=== PATIENT | male | born 1970 | race Caucasian/White ===

== ENCOUNTER 2019-03-04 18:02 | Inpatient (IN) ==
[2019-03-04 19:06] LABS: HEMATOCRIT 33.8 % (42.0-52.0); HEMOGLOBIN 10.5 g/dL (14.0-18.0); LYMPH% 9.1 % (20.5-51.1); MCH 28.8 PG (27-31); MCHC 31.1 g/dL (33-37); MCV 92.9 FL (81-99); MPV 8.9 FL (7.4-10.4); NEUT% 76.5 % (42.2-75.2); PLT 206 X1000 (130-400); RBC 3.64 XMIL (4.7-6.1); RDW 13.2 % (11.5-14.5); WBC 15.62 X1000 (4.8-10.8)
[2019-03-04 19:07] LABS: BASO# 0.02 X1000 (0.0-0.2); BASO% 0.1 % (0.0-0.8); EOS# 0.34 X1000 (0.0-0.7); EOS% 2.2 % (0.0-10.0); IMM GRAN# 0.05 X1000 (0.0-0.04); IMM GRAN% 0.3 % (0.0-0.5); LYMPH# 1.42 X1000 (1.2-3.4); MONO# 1.85 X1000 (0.11-0.59); MONO% 11.8 % (1.7-9.3); NEUT# 11.94 X1000 (1.4-6.5)
[2019-03-04 19:18] LABS: INR 1.13; PROTIME 15.4 Seconds (11.0-16.0)
[2019-03-04 19:19] LABS: PTT 28.9 Seconds (22.3-41.8)
[2019-03-04 19:30] LABS: AGAP 15; ALB/GLOB RATIO 1.3; ALBUMIN 3.5 g/dL (3.5-5.0); ALKALINE PHOSPHATASE 238 U/L (32-122); BUN 28 mg/dL (8-22); CALCIUM 8.3 mg/dL (8.8-10.2); CHLORIDE 107 mmol/L (98-107); CK PROFILE 70 U/L (24-204); COSMO 282; CREATININE 2.9 mg/dL (0.7-1.2); ESTIMATED GFR 23; GLUCOSE 114 mg/dL (70-104); GOT 27 U/L (10-34); GPT 55 U/L (10-44); POTASSIUM 3.7 mmol/L (3.5-5.1); SODIUM 138 mmol/L (136-145); TCO2 16 mmol/L (25-35); TOTAL BILIRUBIN < 0.15 mg/dL (0.20-1.00); TOTAL PROTEIN 6.3 g/dL (6.3-8.3)
--- NOTE | 2019-03-04 19:46 | Diag Imaging Result Doc PS360 ---
EXAM: CHEST-1 VIEW INDICATION: sepsis prot. TECHNIQUE: One view COMPARISON: 06/28/2018 FINDINGS: There is a stable left chest port. The lungs are grossly clear. There is no discrete pleural fluid collection or pneumothorax. The cardiomediastinal silhouette and central vasculature are grossly unremarkable. IMPRESSION: No evidence of acute pathology by plain radiograph. Electronically signed by Yoni Lazaro 03/04/2019 7:44 PM
[2019-03-04] MEDS ORDERED: ZOFRAN IV ONE (20:27)
[2019-03-04] MEDS ORDERED: DILAUDID IV ONE (20:27)
--- NOTE | 2019-03-04 20:55 | Diag Imaging Result Doc PS360 ---
EXAM: CT ABDOMEN/PELVIS W/O CONTRAST INDICATION: abdo pain TECHNIQUE: This exam was performed using automated exposure control, adjustment of mA or kV according to patient size, and/or use of iterative reconstruction technique. COMPARISON: 06/16/2018 FINDINGS: There is mild subsegmental atelectasis at the lung bases. There is a tiny cyst at the inferior right hepatic lobe, stable. The liver is unremarkable, otherwise. The gallbladder, spleen, pancreas, and adrenal glands are unremarkable. There is stable marked chronic pelvocaliectasis bilaterally, more prominent on the left. There is a stable nonobstructing intrarenal stone at the lower pole of the left kidney. There is marked renal cortical thinning on the left and to a much lesser degree on the right, stable. There is a calcification that is closely associated with the mid to distal left ureter. However, it is stable since 2018. No acute obstructing stone is appreciated. The urinary bladder is only slightly distended. There are multiple metallic clips in the pelvis that are stable. There is a colostomy on the left. There are multiple fluid-filled loops of bowel in the pelvis with only mild distention. They are nonspecific. It is very similar to the previous study. Consider ileus versus low-grade partial obstruction. There is wall thickening involving the ascending colon on the right. Colitis cannot be excluded. There is no evidence of free abdominal gas and no significant free fluid. There has been a prior left hip arthroplasty. There is extensive bony heterogeneity involving the pelvis, sacrum, and lower lumbar spine that is stable and probably related to prior radiotherapy. IMPRESSION: 1.Several fluid-filled loops of small bowel with mild distention. They are nonspecific. Ileus versus low-grade partial obstruction should be considered. 2.Wall thickening involving a loop of the ascending colon. Consider colitis. 3.Other incidental/nonacute findings detailed above that are stable as compared to the previous study. Electronically signed by Yoni Lazaro 03/04/2019 8:53 PM
--- NOTE | 2019-03-04 21:53 | PROVIDER DOCUMENTATION ---
This chart was entered by Sarai Ricks Scribe, acting as scribe for Alexandr Reid MD. HPI-Abdominal Pain/GI Problem - General Chief Complaint: SEPSIS ALERT - D Stated Complaint: ABD PAIN Time Seen by Provider: 03/04/19 19:06 Source: patient Allergies/Adverse Reactions: Patient Allergies Allergy/AdvReac Type Severity Reaction Status Date / Time No Known Allergies Allergy Verified 06/29/18 14:42 Home Medications: Home Medication List Medication Instructions Recorded Confirmed Last Taken Type Carbamazepine 200 mg PO BID 04/18/18 06/30/18 06/29/18 21:15 History Oxybutynin [Ditropan] 5 mg PO TID 04/18/18 06/30/18 06/29/18 21:15 History Paroxetine HCl 20 mg PO DAILY 04/18/18 06/30/18 06/29/18 10:30 History Pregabalin [Lyrica] 75 mg PO BID 04/18/18 06/30/18 06/29/18 09:15 History - History of Present Illness-ABD Nature of Presenting Problems: pt is a 48 yr old male presenting with RLQ pain onset this AM, pt reports pain upon waking this morning. pt reports long hx of multiple abdominal surgeries, current ostomy in place. pt reports multiple bowel obstructions due to scar tissue but states this does not feel; the same. pt denies any other pain or complaint Abdominal Pain Onset Location: reports: RLQ Pain Radiation: reports: no radiation Quality of Pain: reports: cramping, sharp Severity in ED: reports: severe Onset/Duration: reports: this morning Timing: reports: still present Activities at Onset: reports: sleep Exposure to sick contacts?: No Modifying Factors: improves with: breathing (worsens pain) Associated Symptoms: reports: fever/chills. denies: nausea, vomiting Last BM: this evening Dark Stools Present?: reports: none noticed Rectal Bleeding: reports: none Rectal Pain: reports: none Emesis Description: reports: none Bruising or Bleeding Gums?: No Similar Symptoms Previously?: No Recently seen or treated by another doctor?: Yes Review of Systems - Adult - REVIEW OF SYSTEMS - ADULT Constitutional: reports: fever Eyes: reports: no symptoms reported Ears, Nose, Mouth & Throat: reports: no symptoms reported Cardiovascular: denies: chest pain, palpitations, syncope Respiratory: denies: dyspnea on exertion, shortness of breath Gastrointestinal: reports: abdominal pain. denies: diarrhea, nausea, poor appetite, vomiting Genitourinary: reports: no symptoms reported Musculoskeletal: denies: back pain, neck pain Integumentary: reports: no symptoms reported Neurological: denies: dizziness/vertigo, headache/migraines, syncope Psychiatric: reports: no symptoms reported Endocrine: reports: no symptoms reported Hematologic/Lymphatic: reports: no symptoms reported Allergic/Immunologic: reports: no symptoms reported All Other Systems: Reviewed and Negative Past History - Adult - PAST MEDICAL HISTORY-ADULT Review of Records: reports: Old Records Reviewed, Nursing Assessment Review, Medications Reviewed, Social history reviewed & non-contributory. Major Childhood Illnesses: reports: denies history Cardiovascular: reports: denies history Respiratory: reports: denies history Gastrointestinal: reports: denies history Obstetrical/Gynecological: reports: denies history Genitourinary: reports: denies history Musculoskeletal: reports: denies history Neurological: reports: denies history Endocrine/Immune: reports: denies history Other Conditions: reports: denies history - IMMUNIZATION STATUS Childhood Immunizations: See Nurse Assessment Flu Vaccine: See Nurse Assessment - FAMILY HISTORY Family History: reviewed, not pertinent - SOCIAL HISTORY Living Situation: family Physical Exam-General - PHYSICAL EXAM-ADULT Initial Vital Signs Reviewed: Yes - CONSTITUTIONAL General Appearance: appears well, alert, no apparent distress - EYES Eyes: PERRL/EOMI - HEAD, EARS, NOSE, MOUTH & THROAT HENMT: normocephalic/atraumatic, moist mucous membranes, normal ENT inspection - NECK Neck: non-tender, full range of motion, supple, normal inspection - RESPIRATORY Respiratory: chest non-tender, lungs clear, normal breath sounds, no respiratory distress, no accessory muscle use - CARDIOVASCULAR Cardiovascular: normal peripheral pulses, no edema, tachycardia - GASTROINTESTINAL (ABDOMEN) Abdominal Exam: tenderness (RLQ tenderness), hernia - LYMPHATIC Lymphatic: no adenopathy - MUSCULOSKELETAL Back Exam: normal inspection Extremity: normal range of motion, non-tender, normal inspection - SKIN Integumentary: normal color, normal turgor, warm/dry - NEUROLOGIC Neurologic: grossly normal - PSYCHIATRIC Psych/Mental Status: normal mood/affect Progress - PLAN OF CARE/RESULTS Progress/Plan/Lab Results: Vital Signs - 8 hr 03/04/19 18:37 Temperature 101.7 F H Pulse Rate 103 H Respiratory Rate 22 Blood Pressure 111/70 O2 Sat by Pulse Oximetry 97 Laboratory Results - last 24 hr 03/04/19 03/04/19 03/04/19 18:50 18:50 18:50 WBC 15.62 H RBC 3.64 L Hgb 10.5 L Hct 33.8 L MCV 92.9 MCH 28.8 MCHC 31.1 L RDW Std Deviation 13.2 Plt Count 206 MPV 8.9 Immature Gran % (Auto) 0.3 Neut % (Auto) 76.5 H Lymph % (Auto) 9.1 L [place] % (Auto) 11.8 H Eos % (Auto) 2.2 Baso % (Auto) 0.1 Immature Gran # (Auto) 0.05 H Neut # (Auto) 11.94 H Lymph # (Auto) 1.42 [place] # (Auto) 1.85 H Eos # (Auto) 0.34 Baso # (Auto) 0.02 PT 15.4 INR 1.13 PTT (Actin FS) 28.9 Plasma Lactate 1.7 Orders Category Date Time Status Cardiac Monitoring DIRECTED Care 03/04/19 18:49 Active IV Insertion ORDERED Care 03/04/19 18:49 Active Notify MD of + Sepsis Screen NOW Care 03/04/19 18:49 Active Notify Physician As Ordered Care 03/04/19 18:49 Active CHEST-1 VIEW [RAD] Stat Exams 03/04/19 18:49 Taken BLOOD CULTURE [BLDCUL] Stat Lab 03/04/19 19:14 Results CBC WITH DIFF [HEME] Stat Lab 03/04/19 18:50 Completed CK PROFILE [SP CHEM] Stat Lab 03/04/19 18:50 Received COMPREHENSIVE METABOLIC PANEL [CHEM] Stat Lab 03/04/19 18:50 Received LACTATE, PLASMA [CHEM] Lab 03/04/19 22:00 Uncollected LACTATE, PLASMA [CHEM] Lab 03/05/19 01:00 Uncollected LACTATE, PLASMA [CHEM] Q3H Lab 03/04/19 18:50 Completed PROTIME WITH INR [COAG] Stat Lab 03/04/19 18:50 Completed PTT [COAG] Stat Lab 03/04/19 18:50 Completed TROPONIN T Stat Lab 03/04/19 18:50 Received URINALYSIS W/POSS RFLX CULT [URINALYSIS] Stat Lab 03/04/19 18:49 Uncollected Oxygen Device Stat Oth 03/04/19 18:49 Active Result Diagrams: 03/04/19 18:50 03/04/19 18:50 - XRAY 1 XRAY Study: Chest Impression: Normal (Signed EXAM: CHEST-1 VIEW INDICATION: sepsis prot. TECHNIQUE: One view COMPARISON: 06/28/2018 FINDINGS: There is a stable left chest port. The lungs are grossly clear. There is no discrete pleural fluid collection or pneumothorax. The cardiomediastinal silhouette and central vasculature are grossly unremarkable. IMPRESSION: No evidence of acute pathology by plain radiograph. Electronically signed by Yoni Lazaro 03/04/2019 7:44 PM 03/04/191943 Interpreting Physician: Yoni Lazaro MD Dictated Date/Time: 03/04/191942 cc: Speedy Canela MD; None,PCP) Comparison with other Films: no changes (06/28/18) - CT/MRI 1 CT Study: Abdomen, Pelvis Impression: Abnormal (Signed EXAM: CT ABDOMEN/PELVIS W/O CONTRAST INDICATION: abdo pain TECHNIQUE: This exam was performed using automated exposure control, adjustment of mA or kV according to patient size, and/or use of iterative reconstruction technique. COMPARISON: 06/16/2018 FINDINGS: There is mild subsegmental atelectasis at the lung bases. There is a tiny cyst at the inferior right hepatic lobe, stable. The liver is unremarkable, otherwise. The gallbladder, spleen, pancreas, and adrenal glands are unremarkable. There is stable marked chronic pelvocaliectasis bilaterally, more prominent on the left. There is a stable nonobstructing intrarenal stone at the lower pole of the left kidney. There is marked renal cortical thinning on the left and to a much lesser degree on the right, stable. There is a calcification that is closely associated with the mid to distal left ureter. However, it is stable since 2018. No acute obstructing stone is appreciated. The urinary bladder is only slightly distended. There are multiple metallic clips in the pelvis that are stable. There is a colostomy on the left. There are multiple fluid-filled loops of bowel in the pelvis with only mild distention. They are nonspecific. It is very similar to the previous study. Consider ileus versus low-grade partial obstruction. There is wall thickening involving the ascending colon on the right. Colitis cannot be excluded. There is no evidence of free abdominal gas and no significant free fluid. There has been a prior left hip arthroplasty. There is extensive bony heterogeneity involving the pelvis, sacrum, and lower lumbar spine that is stable and probably related to prior radiotherapy. IMPRESSION: 1.Several fluid-filled loops of small bowel with mild distention. They are nonspecific. Ileus versus low-grade partial obstruction should be considered. 2.Wall thickening involving a loop of the ascending colon. Consider colitis. 3.Other incidental/nonacute findings detailed above that are stable as compared to the previous study. Electronically signed by Yoni Lazaro 03/04/2019 8:53 PM 03/04/192052 Interpreting Physician: Yoni Lazaro MD Dictated Date/Time: 03/04/192038 cc: Alexandr Reid MD; None,PCP) Comparison with other Films: changes noted (06/16/18) - CONSULTS/PCP/HOSPITALIST Notification #1 *Consult/PCP/Hospitalist*: Dr Betancourt Time Discussed: 21:52 Consult Disposition: Will see in ED, Admit Departure - Departure Date of Disposition Decision: 03/04/19 Time of Disposition Decision: 21:53 DIAGNOSIS: Abdominal pain, Renal insufficiency, Anemia Disposition: ADMITTED INPATIENT 09 Certified Medical Emergency: Emergent Condition: Fair Referrals and Follow-Ups: None,PCP [Primary Care Provider] - - Critical Care Note This patient required my direct & personal management of CC.: No Attestation - Physician/ ALIYA Attestation Patient care was provided by Advanced Practice Provider:: No The physician spent face to face time with patient:: Yes Advanced Practice Provider documentation review:: Supervising physician onsite and consulted in the evaluation and care of this patient. The physician did have a face to face encounter with the patient. This chart was documented by the indicated scribe, (Sarai Ricks Scribe) and accurately reflects the services I performed and decisions made by me, Alexandr Reid MD, as attested by the provider's signature.
[2019-03-04 23:27] LABS: URINE SOURCE CLEAN CATCH
[2019-03-04 23:30] LABS: UR EPITHELIAL CELLS <10 /HPF (<10); URINE BACTERIA NEGATIVE /HPF; URINE WBC TNTC /HPF (<10)
[2019-03-04 23:31] LABS: BILIRUBIN URINE NEGATIVE (NEGATIVE); BLOOD URINE MODERATE (NEGATIVE); COLOR YELLOW; GLUCOSE URINE NEGATIVE (NEGATIVE); KETONE URINE NEGATIVE (NEGATIVE); LEUKOCYTES URINE LARGE (NEGATIVE); NITRITE URINE NEGATIVE (NEGATIVE); PH URINE 6.5; PROTEIN URINE 50 mg/dL (NEGATIVE); TURBIDITY URINE CLEAR (CLEAR); UROBILINOGEN URINE NORMAL (NORMAL)
[2019-03-05] MEDS ORDERED: DILAUDID IV ONE (00:21)
[2019-03-05] MEDS ORDERED: OFIRMEV 1000 MG/ISOTONIC SOLN 1,000 MG/100 ML BOTTLE IV ONE (00:32)
[2019-03-05] MEDS ORDERED: LEVAQUIN 750 MG/D5W 750 MG/150 ML IVPB IV SCH (00:45)
[2019-03-05] MEDS ORDERED: SODIUM CHLORIDE 0.9% INJ SCH (01:00)
[2019-03-05] MEDS: LEVAQUIN 750 MG/D5W 750 MG/150 ML IVPB IV SCH (01:16)
[2019-03-05] MEDS: FLAGYL 500 MG/NS 500 MG/100 ML IVPB IV SCH ×3 (01:16→17:21)
[2019-03-05] MEDS: NEXIUM IV SCH (01:17)
[2019-03-05] MEDS: LR 1,000 ML IV SCH ×3 (04:07→14:44)
[2019-03-05] MEDS: DILAUDID IV PRN ×5 (05:20→22:23)
[2019-03-05] MEDS ORDERED: TYLENOL PO PRN (07:00)
[2019-03-05] MEDS: TEGRETOL PO SCH ×2 (09:52→20:15)
[2019-03-05] MEDS: ZOFRAN IV PRN (09:53)
[2019-03-05 10:42] LABS: BASO# 0.02 X1000 (0.0-0.2); BASO% 0.2 % (0.0-0.8); EOS# 0.41 X1000 (0.0-0.7); EOS% 3.1 % (0.0-10.0); HEMATOCRIT 33.7 % (42.0-52.0); HEMOGLOBIN 10.6 g/dL (14.0-18.0); IMM GRAN# 0.04 X1000 (0.0-0.04); IMM GRAN% 0.3 % (0.0-0.5); LYMPH# 1.62 X1000 (1.2-3.4); LYMPH% 12.3 % (20.5-51.1); MCH 28.9 PG (27-31); MCHC 31.5 g/dL (33-37); MCV 91.8 FL (81-99); MONO% 11.4 % (1.7-9.3); MPV 8.8 FL (7.4-10.4); NEUT# 9.54 X1000 (1.4-6.5); NEUT% 72.7 % (42.2-75.2); PLT 202 X1000 (130-400); RBC 3.67 XMIL (4.7-6.1); RDW 13.3 % (11.5-14.5); WBC 13.13 X1000 (4.8-10.8)
[2019-03-05 10:56] LABS: ALB/GLOB RATIO 0.9; ALBUMIN 3.2 g/dL (3.5-5.0); CALCIUM 8.9 mg/dL (8.8-10.2); CREATININE 2.5 mg/dL (0.7-1.2); MAGNESIUM 1.3 mg/dL (1.5-2.7); TOTAL BILIRUBIN 0.22 mg/dL (0.20-1.00); TOTAL PROTEIN 6.8 g/dL (6.3-8.3)
[2019-03-05] MEDS: TEFLARO 300 MG in NS 250 ML IV SCH (14:44)
--- NOTE | 2019-03-06 00:43 | HISTORY AND PHYSICAL ---
DATE AND TIME OF HISTORY AND PHYSICAL: 03/04/2019 at 2300. CHIEF COMPLAINT: Abdominal pain. HISTORY OF PRESENT ILLNESS: Mr. 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 He also reports that he has had problems with high output out of his colostomy, and has had frequent problems with dehydration and acute on chronic renal failure. The patient states that he does have a left chest port which he receives IV fluids daily at home. The patient states that he receives at least 1 bag of lactated Ringer's daily, though at times, can receive up to 2 to 3 bags. The patient states that starting on Thursday morning, 03/04/2019, that he began to have right lower quadrant pain. The patient states that since the onset it has been a constant dull ache that has become very sharp and painful at times. He said this is mainly with any kind of movement, cough, such as him riding in a car and hitting a bump. He denies any nausea, vomiting. He denies any increased output in his colostomy bag, or any changes in the color, consistency, or smell of his stools. The patient also reports that he has had fever and chills as well, though he denies any headache, chest pain, shortness of breath, or cough. The patient does have some numbness in his left lower extremity, though he states that this is not of new onset and has been present since he had his Leon sarcoma. Upon evaluation in the ER, the patient at one point, did have a documented fever that was 101.7, heart rate 103, respirations 22, blood pressure 111/70 with a MAP of 83, and oxygen saturation 97% on room air. He was noted to have leukocytosis with a white blood cell count of 15,600. He also did have elevated creatinine at 2.9, with a BUN of 28, and a GFR of 23. Though, when compared to his most recent labs which were unfortunately not that recent, they were on 06/29/2018, he has actually had an improvement in his creatinine. The patient is unsure at this time what his baseline renal status is. The patient also reports that he is incontinent of urine and does have loss of sensation when related to feeling any dysuria-type symptoms, but he states that normally he can tell by the color and smell of his urine. He denies any changes in this or any foul odor, though it looks like he does have large leukocytes, too numerous to count white blood cells noted in his urine, as well as some blood. A chest x-ray did not show any acute abnormalities. CT of the abdomen and pelvis without contrast showed that he has several fluid-filled loops of small bowel with mild distention. There are nonspecific. An ileus versus a low-grade partial bowel obstruction should be considered. There is wall thickening involving a loop of the ascending colon, consider colitis. At this time, the patient will be placed for inpatient admission. REVIEW OF SYSTEMS: A 14-point review of systems was conducted with the patient and all were negative, except for pertinent positives mentioned above in HPI. PAST MEDICAL HISTORY: 1. 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 He also did receive extensive radiation therapy, which resulted in him getting radiation enteritis requiring multiple abdominal surgeries and subsequent colostomy. The patient also reports that secondary to his radiation therapy, he has had a bladder surgery as well and is now incontinent of urine. 2. History of a benign brain tumor, which was reportedly a meningioma, for which he did have surgery of a craniotomy and does now have a HORSE RACE STARTER shunt. The patient also states that secondary to this surgery, he does have loss of function to the right side of his face and head, did have loss of hearing, and has a right-sided cochlear implant. 3. Right-sided cochlear implant. 4. Left shoulder surgery. 5. Left hip replacement. 6. History of chronic renal failure. 7. History of seizures. PAST SURGICAL HISTORY: As listed above in the medical history. However, briefly, I will run through these. 1. He has had multiple abdominal surgeries resulting in a colostomy placement. 2. He has had a left chest port placement. 3. He has a history of having a craniotomy with HORSE RACE STARTER shunt placement. 4. Right-sided cochlear implant. 5. Bladder augmentation. 6. Left shoulder surgery. 7. Left hip replacement. SOCIAL HISTORY: The patient denies any tobacco, alcohol, or illicit drug use. FAMILY HISTORY: Positive for his father having a history of prostate cancer. His mother is reported to be healthy. He does have 1 sister who has ovarian cancer and does have multiple sclerosis. ALLERGIES: Patient reports no known allergies. HOME MEDICATIONS: We are awaiting the patient's home medication list to be verified, though he could confirm with me that he does take Tegretol 200 mg p.o. twice daily for his seizures. Once his other medicines have been updated and verified, we will address these and continue appropriate medicines. DIAGNOSTIC DATA: White blood cell count is 15,620, hemoglobin 10.5, hematocrit is 33.8, platelet count is 206,000. PT 15.4, INR 1.13, PTT is 28.9. Sodium 138, potassium 3.7, chloride 107, serum bicarbonate is 16, BUN 28, creatinine 2.9, with a GFR of 23, glucose 114, calcium 8.3. Liver function test are within normal limits, except for ALT elevated at 55 and alkaline phosphatase elevated at 238. CK is 70. Troponin is less than 0.01. Urinalysis was obtained via clean catch, was positive for protein, moderate blood, large leukocytes, and too numerous to count white blood cells. Chest x-ray showed no acute abnormality. This is per Radiology. CT of the abdomen and pelvis without contrast showed several fluid-filled loops of small bowel with mild distention. They are nonspecific. An ileus versus low-grade partial obstruction should be considered. There is also wall thickening involving a loop of the ascending colon and colitis should be considered. There are also other incidental findings, please see CT report for full details. PHYSICAL EXAMINATION: VITAL SIGNS: Temperature 99.7 degrees, heart rate 91, respirations 18, blood pressure is 111/71, oxygen saturation is 100% on room air. GENERAL: Ms. Jackson is a very pleasant, 48-year-old, male, who is resting in the ER stretcher. He is in no acute distress. He is awake, alert, and able to answer questions appropriately. HEENT: Head is atraumatic, normocephalic. Pupils are equal, round, reactive to light, 3 mm bilaterally and brisk. The patient does have a cochlear implant noted to the right side of his head. Oral mucosa is slightly dry. Oropharynx is clear. NECK: Supple. Trachea midline. CARDIOVASCULAR: Patient has S1-S2 present. No murmurs, gallops, rubs appreciated. Regular rate and rhythm. PULMONARY: Patient has symmetrical chest expansion bilaterally. Lung sounds are clear to auscultation in bilateral full chacko. ABDOMEN: Soft. Does not appear to be distended, though the patient did report tenderness upon palpation in the right lower quadrant. Bowel sounds are present in all 4 quadrants and are normoactive. The patient does have a colostomy noted to the left side of his abdomen, as well as previously noted abdominal surgical scars. Though, his stool that is present in his colostomy bag is of yellow, soft consistency, there does not appear to be any obvious hematochezia or melena noted. EXTREMITIES: No cyanosis, clubbing, or edema noted. Pulse, motor, and sensory is intact in all extremities, except for his left lower extremity. The patient does have decreased sensation, though he states this is not of new onset and has been present since his left hip surgery. Radial and pedal pulses are 3+ bilaterally. INTEGUMENTARY: The patient's skin is pink, warm, dry. NEUROLOGICAL: Patient is alert and oriented to person, place, time, and situation. He is able move all extremities. There are no focal neurological deficits noted, except for the previously mentioned left lower extremity decreased sensation, which is not of new onset. ASSESSMENT/PLAN: 1. Ileus versus partial bowel obstruction 2. Possible colitis. For #1 and #2, we will place the patient NPO at this time. We will provide IV fluid hydration with lactated Ringer's at 85 mL per hour. Given the patient's reported fever, as well as possible mention of colitis and his leukocytosis, we have placed him on antibiotic coverage of Flagyl and Levaquin. Blood cultures have been obtained. We will provide IV p.r.n. pain and nausea medication as needed. We have placed a consult with Dr. Gould with Surgery, and will await his evaluation and further recommendations for management. 3. Urinary tract infection. The patient is already on above-mentioned antibiotic of Levaquin. We will continue this at this time. We have placed a urine culture. We will await those results and continue to follow. 4. Chronic kidney disease. The patient's creatinine is 2.9, though we do not have any fairly recent labs to compare this to. This has improved since his most recent labs in June 2018. We will provide some IV hydration, will avoid nephrotoxic medication, and renally dose medicines as necessary. 5. Seizure disorder. We will continue the patient's Tegretol. 6. Deep vein thrombosis prophylaxis will be provided with sequential compression devices. The patient has been placed on the medical floor with telemetry. He will have vital signs q.4 hours. We will do strict intake and output. He will be NPO until evaluated by Surgery. We will repeat a CBC and CMP in the morning. Further orders and recommendations pending hospital course, diagnostic studies, and physician evaluations. Dictated by RENU Borrero for Brandon Betancourt MD cc: Brandon Betancourt MD
[2019-03-06] MEDS: FLAGYL 500 MG/NS 500 MG/100 ML IVPB IV SCH ×3 (01:14→17:27)
[2019-03-06] MEDS: NEXIUM IV SCH (01:15)
[2019-03-06] MEDS: LR 1,000 ML IV SCH ×2 (01:24→14:35)
[2019-03-06] MEDS: DILAUDID IV PRN ×5 (02:22→19:59)
[2019-03-06] MEDS: TEFLARO 300 MG in NS 250 ML IV SCH ×2 (02:22→14:35)
[2019-03-06 07:55] LABS: BASO# 0.01 X1000 (0.0-0.2); BASO% 0.1 % (0.0-0.8); EOS% 4.1 % (0.0-10.0); HEMATOCRIT 31.3 % (42.0-52.0); HEMOGLOBIN 9.8 g/dL (14.0-18.0); LYMPH% 14.5 % (20.5-51.1); MCH 28.6 PG (27-31); MCHC 31.3 g/dL (33-37); MCV 91.3 FL (81-99); MONO% 12.4 % (1.7-9.3); MPV 9.1 FL (7.4-10.4); NEUT# 6.66 X1000 (1.4-6.5); NEUT% 68.9 % (42.2-75.2); PLT 189 X1000 (130-400); RBC 3.43 XMIL (4.7-6.1); RDW 13.3 % (11.5-14.5); WBC 9.67 X1000 (4.8-10.8)
[2019-03-06 08:04] LABS: CALCIUM 9.1 mg/dL (8.8-10.2); CREATININE 2.1 mg/dL (0.7-1.2); POTASSIUM 3.9 mmol/L (3.5-5.1)
[2019-03-06] MEDS: TEGRETOL PO SCH ×2 (08:16→20:02)
--- NOTE | 2019-03-06 11:44 | GENERAL SURGERY CONSULTATION ---
DATE: 03/05/2019 HISTORY OF PRESENT ILLNESS: This is a 48-year-old gentleman who has a history of Leon sarcoma requiring abdominal radiation. He has also had a brain tumor that was treated as well. This has left him with multiple intraabdominal complications, and now he has an end colostomy as a result of this. 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 He has had a recent pneumonia, anemia. He presents now with right lower quadrant abdominal discomfort. CT scan was obtained and suggested ileus, partial obstruction, possibly ascending colitis. denies blood in the stool. Essentially he is feeling better and actually wants to go home. No fevers. No tachycardia. PAST MEDICAL HISTORY: Complications associated with Leon sarcoma. He had a craniotomy. PAST SURGICAL HISTORY: Left hip replacement, colostomy, cochlear implant, BOX CUTTER shunt, and bladder augmentation. He has apparently had colonoscopy done in [place] prior to his end colostomy. SOCIAL HISTORY: No tobacco, alcohol or drugs. FAMILY HISTORY: Reviewed and noncontributory. REVIEW OF SYSTEMS: 10 point is negative. PHYSICAL EXAMINATION: He is afebrile, pulse 81, blood pressure 111/65, oxygen saturation is 100%. General: He is alert, in no acute distress. HEENT: No scleral icterus. No cervical mass. Cardiovascular: Normal rate. Pulmonary: No increased work of breathing. Abdomen: Soft. Mild tenderness in right lower quadrant. No guarding. No peritonitis. Colostomy was pink, viable, with stool and air in the bag. Integument: Warm and dry. Psychiatric: Appropriate affect. Neurologic: No gross deficits. Peripheral vascular normal in lower extremities. DIAGNOSTIC DATA: White count reviewed on admission. Hematocrit is 33. Creatinine 2.5. Albumin is 3.2. Leukocytes in his urine. ASSESSMENT AND PLAN: This is a 48-year-old gentleman with complicated surgical history as well as oncologic history. He does seem to have some colitis possible radiation induced. I would recommend infectious workup for this. He also has acute on chronic renal insufficiency. His ostomy seems to be working. I do not think he is obstructed. He appears to have a UTI as well. Multiple issues ongoing. We will follow him along from a surgical perspective. I think he warrants ultimately repeat endoscopy to evaluate the ascending colitis but would be reasonable to allow these other things to run their course first. cc: Pamela Gould MD [facility]
--- NOTE | 2019-03-06 14:34 | PROGRESS NOTE ---
DATE: 03/06/2019 SUBJECTIVE: The patient reports feeling fine. Eating okay. Having good bowel movements through his colostomy bag. OBJECTIVE: Vital Signs: Temperature 98.6 degrees, heart rate 78, respiratory rate 18, blood pressure 126/82. O2 saturation 99% on room air. General: This is a chronically ill-appearing, 48-year-old male, lying in bed, in no acute distress. HEENT: Head is normocephalic, atraumatic. Neck: No JVD noted. No carotid bruit. Cardiovascular: S1, S2 heard. No murmurs, gallops, or rubs. Regular rate and rhythm. Respiratory: Clear bilaterally to auscultation. No work of breathing or using accessory muscles. Abdomen: Soft. A little bit distended. Bowel sounds present. The patient has a colostomy bag in the left side of the abdomen. No organomegaly noted. No signs of peritoneal irritation. Extremities: No clubbing, cyanosis, or edema. Peripheral pulses present in both legs. Neurological: Patient is alert and oriented x3. Moves 4 extremities. LABORATORY DATA: White cell count 9.67, hemoglobin 9.8, hematocrit 31.3, platelets 189,000. BMP shows creatinine 2.1. ASSESSMENT AND PLAN: 1. Ileus versus partial bowel obstruction. Patient has been evaluated by General Surgery. He does not think this patient is obstructed. The patient has been started on liquid diet, and now he is on GI soft. He is tolerating it very well. I think he may have a colitis, and he is on antibiotics in this case. We will continue Flagyl. At this point, we will continue with the same management. 2. Urinary tract infection. Patient is on Levaquin. Will continue to monitor. 3. Chronic kidney disease stage 3. Creatinine getting back to his baseline. 4. Seizure disorder. We will continue with Tegretol. 5. Gram positive cocci bacteremia. That is result of blood cultures. Hopefully tomorrow we will know exactly what is causing this problem. Currently, he is being covered with Teflaro. cc: MD KAROLINE Blair
--- NOTE | 2019-03-06 16:36 | GENERAL SURGERY PROGRESS NOTE ---
DATE: 03/06/2019 SUBJECTIVE: Feeling some better. paradichlorobenzene tender in the right lower quadrant. She is tolerating a diet. Ostomy functioning. No fevers. No tachycardia. OBJECTIVE: Vitals: Blood pressure 126/82. General: He is alert. Cardiovascular: Normal rate. Abdomen: Soft, tender in the right lower quadrant but no sammie peritonitis. He is eating lunch. LABS: White count down to 9, hematocrit 31. Creatinine is normalized to 2.1. ASSESSMENT AND PLAN: This is a 48-year-old gentleman with history of radiation enteritis, colitis. He has a UTI and apparent ascending colitis. I do not think he is obstructed. He also has acute kidney injury as well. He does get home IV infusions. He also is going to need colonoscopy to evaluate his right colon. He wants to have this done in [place] where he is known to a dining room host. I think it is reasonable. Otherwise continue on antibiotics and monitor him for the next 24 hours. Otherwise, management per the hospitalist service. cc: Pamela Gould MD
[2019-03-06] MEDS: ZOFRAN IV PRN ×2 (17:27→21:43)
[2019-03-07] MEDS: NEXIUM IV SCH (00:09)
[2019-03-07] MEDS: DILAUDID IV PRN ×2 (00:09→06:52)
[2019-03-07] MEDS: FLAGYL 500 MG/NS 500 MG/100 ML IVPB IV SCH ×2 (00:09→08:22)
[2019-03-07] MEDS: LEVAQUIN 750 MG/D5W 750 MG/150 ML IVPB IV SCH (01:24)
[2019-03-07] MEDS: ZOFRAN IV PRN ×3 (01:45→11:03)
[2019-03-07] MEDS: TEFLARO 300 MG in NS 250 ML IV SCH ×2 (03:17→15:10)
[2019-03-07 07:14] VITALS: BP 147/88
[2019-03-07 07:15] LABS: EOS% 5.1 % (0.0-10.0); HEMATOCRIT 31.2 % (42.0-52.0); HEMOGLOBIN 9.8 g/dL (14.0-18.0); LYMPH# 1.04 X1000 (1.2-3.4); LYMPH% 13.3 % (20.5-51.1); MCH 28.6 PG (27-31); MCHC 31.4 g/dL (33-37); MONO% 10.2 % (1.7-9.3); MPV 9.1 FL (7.4-10.4); NEUT# 5.57 X1000 (1.4-6.5); NEUT% 71.4 % (42.2-75.2); PLT 192 X1000 (130-400); RBC 3.43 XMIL (4.7-6.1); RDW 13.4 % (11.5-14.5); WBC 7.81 X1000 (4.8-10.8)
[2019-03-07 07:29] LABS: CALCIUM 8.4 mg/dL (8.8-10.2); CREATININE 2.1 mg/dL (0.7-1.2); POTASSIUM 3.8 mmol/L (3.5-5.1)
[2019-03-07] MEDS: TEGRETOL PO SCH (08:22)
--- NOTE | 2019-03-07 09:04 | GENERAL SURGERY PROGRESS NOTE ---
DATE: 03/07/3029 SUBJECTIVE: Feels better, no more pain. No fevers. No tachycardia. Ostomy is functioning. He is tolerating oral intake. White count normal at 7 hematocrit 31. Creatinine is 2.1. ASSESSMENT/PLAN: 48-year-old gentleman admitted with colitis of the ascending colon, unclear etiology but most likely related to his history of radiation. He also had a urinary tract infection as well as acute kidney injury, dehydration. He seems to be improved from all these aspects. He does need gastroenterology followup. He wants to do this in [place] where he is known. I also think he needs outpatient oral antibiotics for his colitis. Levaquin and Flagyl most likely be appropriate. We will continue to follow while he is here. cc: Pamela Gould MD
--- NOTE | 2019-03-07 15:10 | GASTROENTEROLOGY CONSULTATION ---
DATE: 03/07/2019 ATTENDING PHYSICIAN: Dr. Shelton. REASON FOR CONSULTATION: Colitis. HISTORY OF PRESENT ILLNESS: Mr. Jackson is a 48-year-old male who was admitted on 03/05/2019 for symptoms of abdominal pain. 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 He required extensive radiation therapy at that time. 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 He follows up with gastroenterology at [facility]. According to the patient, he has a left chest port at home from which he receives IV fluids daily at home. He did receive 1 bag of lactated Ringer's daily, though at times, he may receive 2 to 3 bags. On Thursday morning, on 02/22/2019, he began to have right lower quadrant pain which was he said was sharp and painful. He denied any nausea or vomiting. He denied any blood in the colostomy bag. He had some mild fever and chills. He came to the ER. He was imaged which showed evidence of several fluid-filled loops of small bowel with mild distention which was suggestin. Ileus versus low-grade partial obstruction. 2. Wall thickening involving a loop of the ascending colon, consider colitis. 3. Mild subsegmental atelectasis of lung bases. 4. Tiny cyst at the inferior right lower lobe. 5. Marked chronic pelvocaliectasis bilaterally, more prominent on the left. There is a stable nonobstructing intrarenal stone at the lower pole of the left kidney. There is marked renal cortical thinning on the left and to a much lesser degree on the right. There is calcification associated with the mid to distal left ureter. The urinary bladder is the only site distended. There are multiple metallic clips in the pelvis that are stable. There is a colostomy on the left. There is no evidence of free abdominal gas or no significant free fluid. There has been prior left hip arthroplasty. There is extensive bony heterogeneity involving the pelvis, sacrum, and lower lumbar spine that is stable and probably related to prior radiotherapy. During the hospitalization, he was given fluids and treated for ileus versus partial bowel obstruction. General surgery was consulted. He was also diagnosed with a UTI and chronic kidney disease, and was given fluids. Gastroenterology was consulted for further management of colitis. In the hospital course, he has started feeling better. His abdominal pain improved. This morning, he denies any nausea or vomiting. We offered him intervention in the form of colonoscopy but the patient wanted to follow up with his GI at [facility]. 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 PAST SURGICAL HISTORY: Multiple abdominal surgeries resulting in end colostomy placement, left chest port placement, craniotomy with J[employer] FLEX [employer]ELOPER shunting placement for meningioma, right-sided cochlear implant, bladder augmentation, left shoulder surgery, left hip replacement. SOCIAL HISTORY: Denies history of tobacco, alcohol, or illicit drugs. FAMILY HISTORY: Father has prostate cancer. Mother is healthy. One sister has ovarian cancer and has multiple sclerosis. ALLERGIES: No known drug allergies. MEDICATIONS IN THE HOSPITAL: Include Tylenol, carbamazepine, ceftaroline, Nexium once daily, Flagyl 500 mg IV q.8 hours, Dilaudid 1 g IV every 4 hours, Levaquin 750 mg IV once daily, Zofran 4 mg IV every 4 hours. DIET: He is on a GI soft diet. REVIEW OF SYSTEMS: He denies any fever. Review of systems is negative other than as described in the HPI. PHYSICAL EXAMINATION: Vital Signs: Temperature of 98.4 degrees, pulse rate of 76, respiratory rate of 19, blood pressure 147/88, saturating 97% on room air. Body weight of 150 pounds. BMI of 21.5 kg/m2. General Appearance: Thinly built, lying in bed, in no acute distress. HEENT: Pale conjunctivae. No icterus. Pupils equal, reactive to light. Neck: Supple. Abdomen: Soft. Mild discomfort in the pelvic region. No rebound or guarding. He has a colostomy in the left lower quadrant, draining a small amount of brown stool. No guarding. Extremities: No cyanosis or clubbing. Neurological: He is alert, awake, and oriented x3. LABS: Hemoglobin and hematocrit are 9.9 and 31.2, white count of 7.1, platelet count of 196,000. Sodium of 140, potassium 3.8, chloride 112, bicarb 99, anion gap 10, BUN of 12, creatinine of 2.1, glucose of 99, calcium of 8.4. Liver enzymes, AST 16, ALT 38, alkaline phosphatase 220, total protein 6.2, albumin 3.2. Urinalysis showing large leukocytes and moderate blood. Urine culture showing no pathogenic growth. Blood culture, Staphylococcus epidermidis in one blood culture and the second blood culture is showing gram-positive cocci, sensitive to vancomycin and Levaquin. CT scan as described in the HPI. IMPRESSION AND PLAN: 1. Ileus versus small bowel obstruction, partial likely per the imaging. 2. Positive blood culture. 3. Urinary tract infection. 4. Chronic kidney disease stage 3. 5. Seizure disorder. 6. History of multiple abdominal surgeries resulting in end colostomy 2 years ago at [facility], being followed by gastroenterology at [facility]. 7. History of meningioma, status post craniotomy and ventriculoperitoneal shunt, and on chronic seizure medication. 8. Mild colitis in the right colon. RECOMMENDATIONS: 1. He is already on Levaquin and Flagyl. Continue with that. We will start him on Culturelle 1 capsule p.o. b.i.d. We will check the stool studies. The patient will be on antibiotics for gram-positive cocci in the blood. We will continue to watch him closely. Patient does not want to do any endoscopic procedure at the moment. He wants to follow up with his delivery professional at [facility]. I will continue to support him for now. We will continue the patient on Nexium for GI prophylaxis. 2. The above plans were discussed with the patient. All questions were answered. Please call us with any further questions. cc: MD Leandro Briggs MD
[2019-03-07] MEDS ORDERED: CULTURELLE PO SCH (21:00)
--- NOTE | 2019-03-08 12:32 | DISCHARGE SUMMARY ---
ADMISSION DATE: 03/05/2019 DISCHARGE DATE: 03/07/2019 DISCHARGE DIAGNOSES: 1. Ileus, resolved. 2. Acute colitis, under treatment. 3. Chronic kidney disease stage III, stable. 4. Seizure disorder number. CONSULTATIONS: Dr. Marco Antonio Gould from General Surgery. PROCEDURES: 1. Chest x-ray done on admission showed no evidence of acute pathology by plain radiograph. 2. Abdomen and pelvis CT without contrast showed several fluid-filled loops of small bowel with mild distention. They are not specific; ileus versus low-grade partial obstruction should be consider. There is also wall thickening involving the loop of the ascending colon, consider colitis. HOSPITAL COURSE: In brief, this is a 48-year-old male with past medical history Leon sarcoma, with radiation therapy. The patient has been noticing some right lower quadrant pain so that is why he decided to come to the emergency department and he was ordered a CT scan with results as above, so patient was admitted for further evaluation and treatment. The patient reports that he was having good output from his colostomy bag. Evaluated by Dr. Gould. He thinks that this patient may have an acute bowel obstruction. Patient has been started on clear liquid diet that we advanced it as tolerated and he was doing fine. We found out gram-positive cocci bacteremia that returns to be Staphylococcus epidermidis which is a contaminant. At this time, the patient is medically stable. He is going to be discharged with oral antibiotics. He will be seen by his primary care doctor in a week. DISCHARGE PHYSICAL EXAMINATION: Vital signs: Temperature 98.4 degrees, heart rate 76. respiratory rate 19, blood pressure 147/88, O2 saturation 97% on room air. General: Examination this is a chronically ill-appearing, 48-year-old, male, lying in bed, in no acute distress. Cardiovascular: S1, S2 heard. No murmurs, gallops, or rubs. Regular rate and rhythm. Respiratory: Clear bilaterally to auscultation. No work of breathing or using accessory muscles. Abdomen: Soft, a little bit distended. The patient has a colostomy in the left side of the abdomen. Extremities: No clubbing, cyanosis, or edema. Peripheral pulses present in both legs. Neurological: The patient is alert and oriented x3. Moves 4 extremities. DISCHARGE DISPOSITION: Home to self-care. LIST OF MEDICATIONS: 1. Levaquin 750 mg 1 tablet p.o. daily for 10 days. 2. Flagyl 500 mg p.o. 3 times per day for 10 days. 3. Rest of home medications as he was previously taking. cc: Leandro Samuel MD MTDD
== END 2019-03-07 17:31 | disposition home or self-care (01) | DRG 392 ==
LOC: ED 18:02 → 3N 03-05 03:30 → SUATTDRO 03-05 03:30 → 1N 03-07 11:36
PROVIDERS: ATTEND Internal Medicine
CPT/HCPCS: 71010; 71045; 74176; 80048; 80053; 81001; 82550; 83605; 83735; 84484; 85025; 85610; 85730; 87040; 87045; 87046; 87077; 87088; 87177; 87186; 87205; 87324; 87449; 88313; 89055; 96365; 96366; 96368; 96375; 96376; 99284; A9270; J0131; J0712; J1170; J1956; J2405; J7050; J7120; S0030

== ENCOUNTER 2019-07-08 23:03 | Inpatient (IN) ==
[2019-07-08 23:39] LABS: EOS# 0.01 X1000 (0.0-0.7); EOS% 0.1 % (0.0-10.0); HEMATOCRIT 31.9 % (42.0-52.0); HEMOGLOBIN 10.5 g/dL (14.0-18.0); IMM GRAN# 0.02 X1000 (0.0-0.04); IMM GRAN% 0.2 % (0.0-0.5); LYMPH# 0.67 X1000 (1.2-3.4); LYMPH% 6.9 % (20.5-51.1); MCH 28.7 PG (27-31); MCHC 32.9 g/dL (33-37); MCV 87.2 FL (81-99); MONO# 0.83 X1000 (0.11-0.59); MONO% 8.6 % (1.7-9.3); MPV 9.5 FL (7.4-10.4); NEUT# 8.17 X1000 (1.4-6.5); NEUT% 84.2 % (42.2-75.2); PLT 143 X1000 (130-400); RBC 3.66 XMIL (4.7-6.1); RDW 13.3 % (11.5-14.5)
[2019-07-08 23:40] LABS: BILIRUBIN URINE NEGATIVE (NEGATIVE); BLOOD URINE MODERATE (NEGATIVE); COLOR ORANGE; GLUCOSE URINE NEGATIVE (NEGATIVE); KETONE URINE NEGATIVE (NEGATIVE); LEUKOCYTES URINE LARGE (NEGATIVE); NITRITE URINE NEGATIVE (NEGATIVE); PH URINE 6.5; PROTEIN URINE 200 mg/dL (NEGATIVE); SP GRAVITY URINE 1.011; TURBIDITY URINE TURBID (CLEAR); URINE SOURCE CLEAN CATCH; UROBILINOGEN URINE NORMAL (NORMAL)
[2019-07-08 23:44] LABS: UR EPITHELIAL CELLS <10 /HPF (<10); URINE BACTERIA NEGATIVE /HPF; URINE RBC 20-40 /HPF (<10); URINE WBC TNTC /HPF (<10)
[2019-07-08 23:46] LABS: URINE CASTS NONE SEEN; URINE CRYSTALS NONE SEEN; URINE SMALL ROUND CELLS NONE SEEN; URINE YEAST PRESENT
[2019-07-09 00:27] LABS: ALB/GLOB RATIO 1.5; ALBUMIN 3.8 g/dL (3.5-5.0); ALKALINE PHOSPHATASE 188 U/L (32-122); BUN 48 mg/dL (8-22); CREATININE 5.6 mg/dL (0.7-1.2); ESTIMATED GFR 11; GLUCOSE 183 mg/dL (70-104); GOT 7 U/L (10-34); GPT 12 U/L (10-44); TCO2 8 mmol/L (25-35); TOTAL BILIRUBIN < 0.15 mg/dL (0.20-1.00); TOTAL PROTEIN 6.4 g/dL (6.3-8.3)
[2019-07-09] MEDS ORDERED: NS 1,000 ML IV ONE ×2 (00:45→09:20)
[2019-07-09] MEDS ORDERED: VERSED ONE (01:09)
[2019-07-09] MEDS ORDERED: VERSED IV ONE (01:16)
[2019-07-09 01:26] LABS: AGAP 21; CHLORIDE 113 mmol/L (98-107); COSMO 300; POTASSIUM 3.3 mmol/L (3.5-5.1); SODIUM 142 mmol/L (136-145)
[2019-07-09 01:27] LABS: CALCIUM 6.7 mg/dL (8.8-10.2)
[2019-07-09] MEDS ORDERED: DIPRIVAN 1% IV SCH (01:30)
[2019-07-09] MEDS ORDERED: DIPRIVAN 1% 1,000 MG/100 ML BOTTLE ONE (01:31)
[2019-07-09] MEDS ORDERED: ZOSYN 2.25 GM in NS 50 ML IV ONE (01:50)
[2019-07-09] MEDS ORDERED: VANCOMYCIN IV PER PHARMACY MISC SCH (02:00)
--- NOTE | 2019-07-09 02:00 | PROVIDER DOCUMENTATION ---
This chart was entered by Robby Saravia Scribe, acting as scribe for Ivan Jimenez DO. HPI-General Adult <Adonay Cruz - Last Filed: 07/09/19 01:17> - General Source: patient, EMS - History of Present Illness -Gen Adult Nature of Presenting Problems: Pt is a 48 yom who presents to the ED with a CC of confusion. Pt reports he was referred to the ED over abnormal labs. Pt reports his creatinine level was elevated. Pt is concerned about a possible kidney infection. Pt reports a hx of kidney failure. Pt reports his symptoms started at approximately 1500 today. Pt also complains of mild shoulder pain and states it is from the cold weather. Location of Pain/Injury: reports: none Pain Radiation: reports: no radiation Quality of Pain: reports: none Severity: reports: mild Onset/Duration: reports: this afternoon Timing: reports: still present Associated Symptoms: reports: other (Confusion) Similar Symptoms Previously?: No Recently seen or treated by another doctor?: No <Ivan Jimenez - Last Filed: 07/09/19 02:00> - General Chief Complaint: General Adult Stated Complaint: Md sent for bad labs Time Seen by Provider: 07/08/19 23:16 Allergies/Adverse Reactions: Patient Allergies Allergy/AdvReac Type Severity Reaction Status Date / Time No Known Allergies Allergy Verified 06/29/18 14:42 Home Medications: Home Medication List Medication Instructions Recorded Confirmed Last Taken Type RX: Carbamazepine 200 mg PO BID 04/18/18 06/30/18 06/29/18 21:15 History RX: Oxybutynin [Ditropan] 5 mg PO TID 04/18/18 06/30/18 06/29/18 21:15 History RX: Paroxetine HCl 20 mg PO DAILY 04/18/18 06/30/18 06/29/18 10:30 History RX: Pregabalin [Lyrica] 75 mg PO BID 04/18/18 06/30/18 06/29/18 09:15 History Hydrocodone/APAP 5 mg/325 mg 1 ea PO Q6H PRN PRN #15 tab 03/07/19 Unknown Rx [[place]s-5] Levofloxacin [Levaquin] 750 mg PO DAILY #10 tab 03/07/19 Unknown Rx Metronidazole [Flagyl] 500 mg PO TID #30 tab 03/07/19 Unknown Rx RX: Lactobacillus Rhamnosus GG 1 ea PO BID cap 03/07/19 Unknown Rx [Culturelle] Review of Systems - Adult - REVIEW OF SYSTEMS - ADULT Constitutional: reports: see HPI Eyes: reports: no symptoms reported Ears, Nose, Mouth & Throat: reports: no symptoms reported Cardiovascular: reports: no symptoms reported Respiratory: reports: no symptoms reported Gastrointestinal: reports: no symptoms reported Genitourinary: reports: see HPI Musculoskeletal: reports: see HPI, joint pain Integumentary: reports: no symptoms reported Neurological: reports: see HPI, other (Confusion) Psychiatric: reports: no symptoms reported Endocrine: reports: no symptoms reported Hematologic/Lymphatic: reports: no symptoms reported Allergic/Immunologic: reports: no symptoms reported All Other Systems: Reviewed and Negative <Ivan Jimenez - Last Filed: 07/09/19 02:00> Past History - Adult - PAST MEDICAL HISTORY-ADULT Review of Records: reports: Old Records Reviewed, Nursing Assessment Review, Me dications Reviewed, Social history reviewed & non-contributory. Major Childhood Illnesses: reports: denies history Cardiovascular: reports: denies history Respiratory: reports: denies history Gastrointestinal: reports: denies history Obstetrical/Gynecological: reports: denies history Genitourinary: reports: kidney disease Musculoskeletal: reports: denies history Neurological: reports: Seizures/Epilepsy Endocrine/Immune: reports: denies history Other Conditions: reports: denies history - IMMUNIZATION STATUS Childhood Immunizations: See Nurse Assessment Flu Vaccine: See Nurse Assessment - FAMILY HISTORY Family History: reviewed, not pertinent <Ivan Jimenez - Last Filed: 07/09/19 02:00> Physical Exam-General - PHYSICAL EXAM-ADULT Initial Vital Signs Reviewed: Yes - CONSTITUTIONAL General Appearance: alert, mild distress - EYES Eyes: PERRL/EOMI, pink conjunctivae - HEAD, EARS, NOSE, MOUTH & THROAT HENMT: normocephalic/atraumatic, moist mucous membranes - NECK Neck: non-tender, full range of motion - RESPIRATORY Respiratory: chest non-tender, lungs clear, normal breath sounds - CARDIOVASCULAR Cardiovascular: normal peripheral pulses, regular rate, rhythm - GASTROINTESTINAL (ABDOMEN) Abdominal Exam: non tender, soft - MUSCULOSKELETAL Extremity: normal range of motion, non-tender - SKIN Integumentary: normal color, warm/dry - NEUROLOGIC Neurologic: grossly normal, no motor/sensory deficits - PSYCHIATRIC Psych/Mental Status: normal mood/affect, normal thought content, normal thought process, oriented x 3 <Ivan Jimenez - Last Filed: 07/09/19 02:00> Progress - PLAN OF CARE/RESULTS Progress/Plan/Lab Results: Vital Signs - 8 hr 07/08/19 23:33 Pulse Rate 96 H Respiratory Rate 20 Blood Pressure 112/71 O2 Sat by Pulse Oximetry 99 Laboratory Results - last 24 hr 07/08/19 07/08/19 07/08/19 23:23 23:32 23:32 WBC 9.70 RBC 3.66 L Hgb 10.5 L Hct 31.9 L MCV 87.2 MCH 28.7 MCHC 32.9 L RDW Std Deviation 13.3 Plt Count 143 MPV 9.5 Immature Gran % (Auto) 0.2 Neut % (Auto) 84.2 H Lymph % (Auto) 6.9 L [place] % (Auto) 8.6 Eos % (Auto) 0.1 Baso % (Auto) 0.0 Immature Gran # (Auto) 0.02 Neut # (Auto) 8.17 H Lymph # (Auto) 0.67 L [place] # (Auto) 0.83 H Eos # (Auto) 0.01 Baso # (Auto) 0.00 Carbon Dioxide 8 L BUN 48 H Creatinine 5.6 H Estimated GFR/1.73 m2 11 BUN/Creatinine Ratio 9 Glucose 183 H Calcium 6.7 L* Total Bilirubin < 0.15 L AST 7 L ALT 12 Alkaline Phosphatase 188 H Total Protein 6.4 Albumin 3.8 Globulin 2.6 Albumin/Globulin Ratio 1.5 Urine Source CLEAN CATCH Urine Color ORANGE Urine Turbidity TURBID Urine pH 6.5 Ur Specific [place] 1.011 Urine Protein 200 A Ur Glucose (Stick) NEGATIVE Ur Ketones (Stick) NEGATIVE Urine Blood MODERATE A Urine Nitrite NEGATIVE Urine Bilirubin NEGATIVE Urobilinogen Dipstick NORMAL Urine Leukocytes LARGE A Urine WBC (Auto) TNTC A Urine RBC (Auto) 20-40 A U Epithel Cells (Auto) <10 Urine Bacteria (Auto) NEGATIVE Urine Crystals NONE SEEN Small Round Cells NONE SEEN Urine Casts NONE SEEN Urine Yeast-like Cells PRESENT Orders Category Date Time Status CHEST-PORTABLE [RAD] Stat Exams 07/08/19 23:25 Taken CHEST-PORTABLE [RAD] Stat Exams 07/09/19 01:[address] HEAD W/O CONTRAST [CT] Stat Exams 07/09/19 00:46 Taken CBC WITH ELECTRONIC DIFF [HEME] Stat Lab 07/08/19 23:32 Completed COMPREHENSIVE METABOLIC PANEL [CHEM] Stat Lab 07/08/19 23:23 Results UA NIMS W/REFLEX CULT [URINALYSIS] Stat Lab 07/08/19 23:32 Completed URINE CULTURE [RM] Routine Lab 07/08/19 23:45 Received URINE MANUAL MICROSCOPIC [URINALYSIS] Stat Lab 07/08/19 23:32 Completed 0.9% Sodium Chloride Inj [Ns] 1,000 ml Med 07/09/19 00:45 Active IV 999 mls/hr Midazolam [Versed] Med 07/09/19 01:09 Discontinued 5 mg .ROUTE .STK-MED ONE Result Diagrams: 07/08/19 23:32 07/08/19 23:23 <Adonay Cruz - Last Filed: 07/09/19 01:17> - PLAN OF CARE/RESULTS Result Diagrams: 07/08/19 23:32 07/08/19 23:23 - REASSESSMENT Reassessment #1 Time Reassessed: 01:12 Status: worsening (patient became unresponsive and then began to have respiratory distress) - EKG 1 Time of EKG reading by physician:: 23:15 EKG Read and Signed by:: Ivan Jimenez EKG Interpretation (*Must complete 3 of following elements*): Abnormal (Borderline ECG; Possible left atrial enlargement) Rate: 98 Rhythm: NSR [place]: normal QRS: normal [place] Interval: normal ST Wave: normal - CONSULTS/PCP/HOSPITALIST Notification #1 *Consult/PCP/Hospitalist*: Dr Moss Time Discussed: 01:56 Consult Disposition: Will see in ED <Ivan Jimenez - Last Filed: 07/09/19 02:00> Procedures - INTUBATION Time of Intubation: 01:00 Intubation Method: orotracheal Equipment: ETT, Glidescope Tube Size (cm): 7.5 Pretreated with 100% Oxygen?: Yes Breath Sounds after Intubation: equal ETT Primary Tube Confirmation: Capnometry CO2 Change, Direct Visualization, Tube placement verified on XRAY Intubation Complications: apparent aspiration Vent Settings: See Respiratory Therapy Notes Procedure Comment: Patient did require some sedation with versed after intubation. <Adonay Cruz - Last Filed: 07/09/19 01:17> Departure <Adonay Cruz - Last Filed: 07/09/19 01:17> - Departure Date of Disposition Decision: 07/08/19 Time of Disposition Decision: 01:58 Certified Medical Emergency: Emergent - Critical Care Note This patient required my direct & personal management of CC.: No <Ivan Jimenez - Last Filed: 07/09/19 02:00> - Departure DIAGNOSIS: Respiratory failure Qualifiers: Chronicity: acute Respiratory failure complication: hypoxia Qualified Code(s): J96.01 - Acute respiratory failure with hypoxia Acute on chronic renal failure Qualifiers: Acute renal failure type: unspecified Chronic kidney disease stage: stage 5, not on chronic dialysis Qualified Code(s): N17.9 - Acute kidney failure, unspecified; N18.5 - Chronic kidney disease, stage 5 Disposition: ADMITTED INPATIENT 09 Condition: Critical Additional Instructions: ED Follow Up Instructions: You have been treated by a care provider in the Emergency Department. These instructions are being provided to you so you can have an understanding of how to care for yourself upon discharge. Upon discharge from the Emergency Department, you are responsible for making arrangements for follow-up care by a physician of your choice. Take all prescribed medications as directed. Return to the Emergency Department immediately for any new or worsening symptoms. You may call the Physician Referral phone number at [phone] to obtain a list of Physicians who are taking new patients. Referrals and Follow-Ups: None,PCP [Primary Care Provider] - Attestation - Physician/ ALIYA Attestation Patient care was provided by Advanced Practice Provider:: No The physician spent face to face time with patient:: Yes Advanced Practice Provider documentation review:: Supervising physician onsite and consulted in the evaluation and care of this patient. The physician did have a face to face encounter with the patient. <Ivan Jimenez - Last Filed: 07/09/19 02:00> This chart was documented by the indicated scribe, (Robby Saravia Scribe) and accurately reflects the services I performed and decisions made by , Barbara,Ivan E., DO, as attested by the provider's signature.
[2019-07-09 02:20] LABS: ALLEN TEST YES; BLOOD TYPE ARTERIAL; HCO3-(ACT) 6.2 mmoll (20.0-26.0); METHB 1.3 % (0.0-1.5); O2(CT) 16.3 mL/dL (15.0-23.0); O2HB 97.2 % (95.0-99.0); PCO2(98.6) 42 mmHg (35-45); PO2(98.6) 402 mmHg (60-100); SAMPLE BLOOD; SAO2 99.7 % (95.0-100.0); SRATE 14 BPM; THB 11.1 g/dL (11.5-17.4); TVOL 500 mL
[2019-07-09 02:21] LABS: MODALITY VENTILATOR
[2019-07-09] MEDS ORDERED: VANCOMYCIN 1 GM/NS 1 GM/250 ML IVPB IV ONE (03:00)
[2019-07-09] MEDS: SODIUM BICARBONATE 8.4% 150 MEQ in D5W 1,000 ML IV SCH ×3 (03:10→22:17)
[2019-07-09 03:18] LABS: UR AMPHETAMINES QUAL NONE DETECTED (NONE DETECT); UR BARBITUATES QUAL NONE DETECTED (NONE DETECT); UR BENZODIAZEPIN QUAL NONE DETECTED (NONE DETECT); UR CANNABINOIDS QUAL NONE DETECTED (NONE DETECT); UR COCAINE QUAL NONE DETECTED (NONE DETECT); UR METHADONE QUAL NONE DETECTED (NONE DETECT); UR OPIATES QUAL NONE DETECTED (NONE DETECT); UR OXYCODONE QUAL PRESUMPTIVE POSITIVE (NONE DETECT); UR PCP QUAL NONE DETECTED (NONE DETECT)
[2019-07-09 03:19] LABS: MAGNESIUM 0.9 mg/dL (1.5-2.7)
[2019-07-09] MEDS ORDERED: CALCIUM GLUCONATE 1 GM in NS 50 ML IV ONE (03:27)
[2019-07-09] MEDS ORDERED: MAGNESIUM SULFATE 2 GM/S.W.I. 2 GM/50 ML IVPB IV ONE (03:27)
--- NOTE | 2019-07-09 03:27 | EKG Report ---
Test Performed on : 07/08/2019 11:14:05 PM Test Reason : Respiratory Failure,AMS Blood Pressure : / mmHG Vent. Rate : 098 BPM Atrial Rate : 098 BPM P-R Int : 136 ms QRS Dur : 084 ms QT Int : 380 ms P-R-T Axes : 068 001 057 degrees QTc Int : 485 ms Normal sinus rhythm. Possible Left atrial enlargement Borderline ECG When compared with ECG of 16-APR-2018 17:57, No significant change was found Unconfirmed Result
[2019-07-09] MEDS ORDERED: TYLENOL PR PRN (05:05)
[2019-07-09 05:43] LABS: ACETAMINOPHEN 7.9 ug/mL (10-30); SALICYLATES < 3.00 mg/dL (3-10)
--- NOTE | 2019-07-09 05:52 | HISTORY AND PHYSICAL ---
Patient presented to the hospital with some confusion. Noted that he had been referred to the emergency department over abnormal labs. Unfortunately, while he was in the ER he became more confused, obtunded, short of breath, dyspneic. ABG was obtained which demonstrated a pH of 6.9, pCO2 of 42, base excess of -24. The patient was intubated. His creatinine is elevated at 5.6. His most recent baseline appears to be around 2.1 to 2.5 although by history he has been in worse renal failure in the past with last year actually in May with a creatinine in the 6.5 to 7 range. BUN is elevated at 48. His calcium is low at 6.7. It does appears as though he has urinary tract infection in addition. Patient currently is intubated and sedated. Does not answer questions nor respond to commands. His lungs are relatively clear. We are going to admit him to the hospital, place him on antibiotics for urinary infection. I do not currently have an accurate medication list. We will adjust those as it is made available. We are going to check a urine drug screen, blood culture, urine culture and we will follow. cc: Elgin Moss MD
[2019-07-09] MEDS: PROTONIX IV SCH ×2 (06:02→16:50)
[2019-07-09 06:13] LABS: ALLEN TEST YES; BE -21.4 mmoll (-3.0-3.0); BLOOD TYPE ARTERIAL; HCO3-(ACT) 8.3 mmoll (20.0-26.0); METHB 0.9 % (0.0-1.5); O2(CT) 14.3 mL/dL (15.0-23.0); O2HB 97.5 % (95.0-99.0); PCO2(98.6) 32 mmHg (35-45); PO2(98.6) 194 mmHg (60-100); SAMPLE BLOOD; SAO2 99.5 % (95.0-100.0); SRATE 14 BPM; THB 10.1 g/dL (11.5-17.4); TVOL 500 mL
[2019-07-09 06:15] LABS: pH(98.6) 7.02 (7.35-7.45)
[2019-07-09 06:16] LABS: MODALITY VENTILATOR
[2019-07-09] MEDS: SODIUM CHLORIDE 0.9% INJ SCH ×2 (06:42→16:50)
[2019-07-09 06:54] LABS: EOS# 0.02 X1000 (0.0-0.7); EOS% 0.3 % (0.0-10.0); HEMATOCRIT 30.1 % (42.0-52.0); HEMOGLOBIN 9.9 g/dL (14.0-18.0); IMM GRAN# 0.02 X1000 (0.0-0.04); IMM GRAN% 0.3 % (0.0-0.5); LYMPH# 1.44 X1000 (1.2-3.4); LYMPH% 18.4 % (20.5-51.1); MCH 28.7 PG (27-31); MCHC 32.9 g/dL (33-37); MCV 87.2 FL (81-99); MONO# 0.83 X1000 (0.11-0.59); MONO% 10.6 % (1.7-9.3); MPV 9.1 FL (7.4-10.4); NEUT# 5.51 X1000 (1.4-6.5); NEUT% 70.4 % (42.2-75.2); PLT 122 X1000 (130-400); RBC 3.45 XMIL (4.7-6.1); RDW 13.2 % (11.5-14.5); WBC 7.82 X1000 (4.8-10.8)
[2019-07-09 07:45] LABS: ALBUMIN 3.4 g/dL (3.5-5.0); CREATININE 5.7 mg/dL (0.7-1.2); MAGNESIUM 1.5 mg/dL (1.5-2.7); PHOSPHORUS 7.1 mg/dL (2.7-4.5); POTASSIUM 3.4 mmol/L (3.5-5.1)
[2019-07-09 08:14] LABS: CALCIUM 6.7 mg/dL (8.8-10.2)
--- NOTE | 2019-07-09 09:10 | Diag Imaging Result Doc PS360 ---
CHEST-PORTABLE - 07/08/2019 INDICATION: malaise COMPARISON: 03/04/2019 FINDINGS: Stable left chest port in good position. There is ill-defined right perihilar infiltrate. Heart size is normal. No pneumothorax or pleural effusion. IMPRESSION: Right perihilar infiltrate indicating bronchopneumonia. Electronically signed by Avery Murphy 07/09/2019 9:07 AM
--- NOTE | 2019-07-09 09:24 | Diag Imaging Result Doc PS360 ---
CHEST-PORTABLE - 07/09/2019 INDICATION: tube placement COMPARISON: 07/08/2019 FINDINGS: There is an endotracheal tube in good position at T3-T4. Stable left chest port. There is slight worsening ill-defined central infiltrates bilaterally concerning for bronchopneumonia. Heart size is normal. No pneumothorax or significant pleural effusion. IMPRESSION: Good endotracheal tube placement. Slight worsening central infiltrates concerning for bronchopneumonia. Electronically signed by Avery Murphy 07/09/2019 9:22 AM
--- NOTE | 2019-07-09 09:46 | Diag Imaging Result Doc PS360 ---
CT HEAD W/O CONTRAST - 07/09/2019 INDICATION: unresponsive COMPARISON: 04/17/2018 FINDINGS: Stable craniectomy changes at the right posterior fossa. Stable left frontal ventriculostomy shunt catheter in good position. The ventricles and sulci are normal in size and contour. No intracranial mass or hemorrhage. The skull is intact. The sinuses are clear. IMPRESSION: No acute process. This exam was performed using automated exposure control, adjustment of mA or kV according to patient size, and/or use of iterative reconstruction technique Electronically signed by Avery Murphy 07/09/2019 9:43 AM
[2019-07-09] MEDS: MAXIPIME 1 GM in NS 50 ML IV SCH ×2 (09:50→20:01)
[2019-07-09] MEDS ORDERED: LEVOPHED 8 MG in D5 1/2 NS 250 ML IV SCH (10:00)
[2019-07-09] MEDS ORDERED: CALCIUM GLUCONATE IV PUSH ONE (10:02)
[2019-07-09] MEDS: ZYVOX 600 MG/D5W 600 MG/300 ML IVPB IV SCH ×2 (10:15→22:07)
[2019-07-09] MEDS ORDERED: ZOSYN 2.25 GM in NS 50 ML IV SCH (10:30)
[2019-07-09] MEDS ORDERED: DIPRIVAN 1% 1,000 MG/100 ML BOTTLE IV SCH (10:45)
--- NOTE | 2019-07-09 11:02 | Diag Imaging Result Doc PS360 ---
US RENAL 2 (RETROPER) COMPLETE - 07/09/2019 INDICATION: eryn/arf TECHNIQUE: COMPARISON: CT from 03/04/2019 FINDINGS: There is severe bilateral hydronephrosis similar to prior. There is severe cortical atrophy of the left kidney. There is still some cortex left at the right kidney. The right kidney measures 16.7 x 8.9 x 9.27 m. Cortex measures 13 mm. The left kidney measures 14 x 6.3 x 6.6 cm. Cortex measures 5 mm. There is a Hewitt catheter in the urinary bladder. IMPRESSION: Severe bilateral hydronephrosis. Severe atrophy of the left kidney. Electronically signed by Avery Murphy 07/09/2019 11:00 AM
[2019-07-09] MEDS: DUONEB (A & A) INH SCH ×3 (11:11→21:37)
--- NOTE | 2019-07-09 12:55 | Diag Imaging Result Doc PS360 ---
CT ABDOMEN/PELVIS W/O CONTRAST - 07/09/2019 INDICATION: decreased renal function COMPARISON: 03/04/2019 FINDINGS: There is moderate atelectasis in the lung bases. Heart size is normal. There is massive bilateral hydronephrosis. There is severe atrophy of the left kidney with severe cortical thinning. This is stable from prior. The right hydronephrosis has severely worsened since prior. There is a stable left upper quadrant ostomy. There is worsening abnormal dilation of numerous bowel loops in the pelvis. The reason is unclear. There are numerous surgical clips here as well. There is a left hip prosthesis. There is extremely severely abnormal bony density in the pelvis diffusely. There is a Hewitt catheter in the urinary bladder. Stable abnormal tissue at the left sacral wing with erosive effects. IMPRESSION: 1. Severe worsening hydronephrosis of the right kidney. 2. Stable massive hydronephrosis of the left kidney with severe cortical atrophy. 3. New severe distention of bowel loops in the pelvis, nonspecific. These may be obstructed. This exam was performed using automated exposure control, adjustment of mA or kV according to patient size, and/or use of iterative reconstruction technique Electronically signed by Avery Murphy 07/09/2019 12:53 PM
--- NOTE | 2019-07-09 14:02 | PROGRESS NOTE ---
DATE: 07/09/2019 Mr. Jackson is seen in the ICU today, currently intubated, sedated on propofol. No family member at the bedside. Most of the interim history is gathered from the attending nurse. Mr. Jackson got admitted early this morning because of altered mental status which gradually got worse in the emergency room and he was emergently intubated. We understand per the ER documentation that Mr. Jackson has been getting confused lately. He was referred to the ED because of abnormal labs. Unsure who initially referred him but apparently it was because his creatinine was getting elevated, so he was brought into the emergency room. I understand his symptoms started about 1500 yesterday. In the emergency room as I said, it is documented that he became more confused to where it appears that he was not able to protect his airway so he was emergently intubated in the emergency room. This morning he remains intubated. He seems to be synchronizing well with the ventilator. OBJECTIVE: Current vitals: Blood pressure is 96/61, pulse of 76, respiration is 18, temperature is 98.2 degrees. General: Mr. Carolina is a 49-year-old gentleman. He is in bed. He is currently intubated and sedated. However, he would open his eyes to his name. He will try to follow some basic commands. HEENT: Mucosa is dry but pink. Anicteric. Acyanotic. Neck: Supple. There is no JVD. Chest: Good air entry bilaterally. There are transmitted sounds from the ventilator. Cardiovascular: Regular rate and rhythm. GI: Abdomen is soft. There is an infraumbilical old surgical scar. There is also a mild scar on the right side of the abdominal wall. There is an ostomy bag on the left anterior lower abdomen, which is completely dry. BARREL PLANER: Patient will open his eyes to his name. Pupils are equal and they are reactive. He will withdraw from pain. He is also sedated on propofol. LABORATORY DATA: WBC is 7.82, hemoglobin is 9.9, platelet count of 122,000. The patient current ABG shows pH of 7.02, pCO2 of 32, PaO2 of 194. Chemistry is also reviewed. Creatinine is up to 5.7. He continues to be remarkably acidotic and with high gap. IMAGING STUDIES: The chest x-ray reveals a right perihilar infiltrate indicating bronchopneumonia. ASSESSMENT: Mr. Jackson is a 49-year-old gentleman with multiple comorbidities, has been admitted here multiple times will recurrent renal failure. At some point, he was on dialysis. Comes in because of abnormal labs. He became remarkably altered and got intubated. ASSESSMENT: 1. Acute respiratory failure. The patient is currently under the vent. Pulmonary Medicine has been consulted. 2. Acute on chronic kidney failure. We will continue with the adequate fluid resuscitation. We will get an ultrasound of the kidneys and Nephrology has been consulted. 3. Acute hypercarbic respiratory failure. 4. Severe triple acidosis (respiratory acidosis, high anion gap metabolic acidosis and non-anion gap metabolic acidosis). The patient is currently under the ventilator for the respiratory part. He is also on bicarb drip and will be following on his labs every 4 hourly and also follow further recommendations from Nephrology. 5. Anuria. The patient has not had any urine output at all. There are multiple documentations in his chart of having this problem more frequently most times associated with severe dehydration. However, he also has chronic obstructions. We will continue with the fluid challenge and we will get ultrasound to rule out any ongoing obstructive uropathy. We will follow once we have the ultrasound report then we will act accordingly. 6. Altered mental status, most likely due to metabolic encephalopathy. The patient is currently sedated. We will re-evaluate this once his metabolic milieu gets a lot better and he is off the vent. 7. 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 The patient is status post colostomy. He is also status post augmented bladder with reimplanted ureter into the augmented part of the bladder. 8. 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 9. 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 10. History of seizure disorder. Patient is on carbamazepine at home. We will initiate this once he becomes more hemodynamically stable. 11. Hypotension. I think this is multifactorial including possible sepsis and ongoing metabolic derangements. The patient is currently on antimicrobial coverage. Blood cultures have been done. Urine culture has also been done. We will continue with the fluid resuscitation. We will add Levophed if needed. 12. Right lower lobe bronchopneumonia. We have changed the current antibiotic which was Zosyn with vancomycin to cefepime and Zyvox because of the current renal compromise. Critical time spent is 1 hour. cc: Hermes Vázquez MD
[2019-07-09] MEDS: MORPHINE IV PRN ×2 (14:19→19:57)
[2019-07-09] MEDS: ATIVAN IV PRN (14:19)
[2019-07-09 15:06] LABS: CK INDEX 2.2 (0.0-2.5); CK-MB 6.15 ng/mL (0.0-5.0)
--- NOTE | 2019-07-09 15:11 | CONSULTATION ---
DATE OF CONSULTATION: 07/09/2019 CONSULTING PHYSICIAN: Rodriguez Eller MD with Nephrology. CONSULTATION FOR: Right hydronephrosis, acute kidney injury. HISTORY OF PRESENT ILLNESS: A 49-year-old male with history of Leon sarcoma of the coccyx, who has had radiation as well as exploratory laparotomy with colostomy. He is known to have renal insufficiency due to an atrophic left kidney. He was admitted to the hospital with confusion and abnormal labs with acidosis and a creatinine of 5.6. He underwent imaging with renal ultrasound 07/09/2019 revealing bilateral hydronephrosis. He then had CT of abdomen and pelvis, which revealed atrophy of the left renal unit with severe cortical thinning as expected but worsening of the right hydroureteronephrosis. He still has decent renal parenchyma on the right side per my review of images. The patient is intubated and the history is obtained from his and medical record review. Per his , he did not complain of right flank pain. There was no evidence of gross hematuria. He had not been treated for a UTI recently. PAST MEDICAL HISTORY: Leon sarcoma, benign brain tumor, seizures. PAST SURGICAL HISTORY: 1. Exploratory laparotomy with colostomy. 2. Craniotomy. 3. Bladder augmentation. 4. Left shoulder arthroplasty. 5. Left hip arthroplasty. ALLERGIES: No known drug allergies. SOCIAL HISTORY: Uses marijuana, denies alcohol or tobacco use currently. FAMILY HISTORY: Positive for prostate cancer. MEDICATIONS: Ditropan, Lyrica, Tegretol, Sertraline, Phenergan, sodium bicarbonate, Percocet, potassium chloride. REVIEW OF SYSTEMS: Unobtainable secondary to the patient's intubated status. PHYSICAL EXAMINATION: Vital signs: T 98.9, P 71, BP 196/64. General: No acute distress. The patient is intubated. HEENT: Endotracheal tube in good position. Cardiovascular: Regular rate and rhythm. Pulmonary: Bilateral breath sounds. Abdomen: Soft, nontender, nondistended. Colostomy in place. Multiple scars are noted. : Normal external male genitalia, testes undescended bilaterally, Hewitt catheter in place with scant amount of urine in the bag. Digital rectal examination is deferred at this time. Dermatologic: No obvious skin rashes. Neurologic: Not applicable secondary to intubated status. PERTINENT LABORATORIES: White cell count is 9000, creatinine is 5.7, potassium is 3.4. His urinalysis was negative for bacteria but had blood and white cells. PERTINENT IMAGES: Renal ultrasound and CT abdomen and pelvis per HPI. ASSESSMENT AND PLAN: A 49-year-old male with history of Leon sarcoma, who has had radiation, chemotherapy, and exploratory laparotomy in the past. He also had bladder augmentation. He has chronic left ureteral obstruction with atrophic kidney. He has fairly new onset of hydroureteronephrosis without stone or definitive etiology of obstruction. I have discussed with the patient's that it likely could be from scarring from radiation and previous surgeries. I have discussed with the patient's that he has been admitted with acute kidney injury and creatinine up to 6 and hence his acute kidney injury may not be due to right obstruction alone. I discussed with her that we could attempt to place right ureteral stent and see if that will improve his kidney function. She wants to pursue that. We discussed the possibility of not being able to place right ureteral stent given his history of bladder augmentation and obstruction. We discussed it will not be worth placing a left ureteral stent given that his left kidney is fairly atrophic. She is in agreement. Again, I explained to her that placement of the stent may or may not improve his kidney function. We discussed the risks of cystoscopy with right retrograde pyelogram and right ureteral stent placement including but not limited to bleeding, infection, injury to the bladder, injury to adjacent structures, and need for additional interventions explained. She voiced understanding and wants for the patient to proceed. PLAN: 1. N.p.o. after midnight. 2. To the operating room tomorrow for cystoscopy, right retrograde pyelogram, right ureteral stent placement. 3. Thank you for the consultation. cc: Desean Victoria MD
--- NOTE | 2019-07-09 15:58 | Diag Imaging Result Doc PS360 ---
CHEST/ABD TUBE PLACEMENT - 07/09/2019 INDICATION: NG tube placement verification COMPARISON: 07/09/2019 FINDINGS: There is a new nasogastric tube in good position the stomach. Stable endotracheal tube in good position. IMPRESSION: Good support tube placement. Electronically signed by Avery Murphy 07/09/2019 3:55 PM
[2019-07-09] MEDS ORDERED: MORPHINE IV ONE (16:24)
[2019-07-09] MEDS ORDERED: ATIVAN IV PRN (16:26)
[2019-07-09] MEDS ORDERED: ATIVAN 20 MG in NS 190 ML IV SCH (16:30)
[2019-07-09] MEDS: ATIVAN 20 MG in NS 190 ML IV SCH (17:05)
--- NOTE | 2019-07-09 17:42 | NEPHROLOGY CONSULTATION ---
DATE: 07/09/2019 REASON FOR CONSULTATION: Acute kidney injury. HISTORY OF PRESENT ILLNESS: Mr. Jackson is a 49-year-old, white male, that we have seen before, about 1 year ago. At that time, he had acute kidney injury overlying his routine chronic kidney disease. He has a history of sarcoma of the abdomen for which he underwent radiation. He has required colostomy and then he has had chronic bladder dysfunction and obstruction. He presented to the emergency room in [place] with confusion. His initial evaluation disclosed respiratory failure, acidosis, acute kidney injury, etc., so he was intubated and shipped to [place] for evaluation and further treatment. Family is not in the lobby or at the bedside. His initial evaluation found blood pressure of 112/71, and he has developed hypotension with lowest blood pressure measured 89/60. He is afebrile and tachycardic. PAST MEDICAL HISTORY: As above. Family history, review of systems, social history, etc., not available besides what is listed in the notes. HOME MEDICATIONS: Include oxybutynin, pregabalin, carbamazepine, sertraline, promethazine, sodium bicarbonate, oxycodone, potassium. ALLERGIES: None. PHYSICAL EXAMINATION: Blood pressure 100/59, heart rate 75, respirations 14. Afebrile, temperature max 99.7 degrees. General: Sedated, on the ventilator. No distress. Skin: Warm and dry. Conjunctivae are pink. Oropharynx is dry. Neck veins are not distended. Trachea is midline. Heart: Regular. No murmurs, rubs, gallops. Lungs: Equal breath sounds. No crackles or wheezes. Abdomen: Flat, soft. Diminished bowel sounds. Ostomy is viable. Extremities: No edema, clubbing, or cyanosis. IMPRESSION/PLAN: Acute kidney injury complicated by metabolic acidosis. His blood gases suggest a mixed metabolic and respiratory acidosis. His anion gap was 20, also suggesting both gap and non-gap components to his acidosis. His urine output has been negligible since admission. Ultrasound at the bedside confirms severe bilateral obstruction with cortical atrophy. I have discussed the case with Dr. Victoria. We will perform CT abdomen for comparison. He is on an IV bicarbonate drip at 125 mL an hour and also receiving a fluid bolus of normal saline. All of this is appropriate. Antibiotics are dosed appropriately. We will follow along. cc: Rodriguez Eller MD
--- NOTE | 2019-07-09 20:13 | CONSULTATION ---
DATE OF CONSULTATION: 07/09/2019 REQUESTING PROVIDER: RENU Borrero. REASON FOR CONSULTATION: Respiratory failure, ventilator management. HISTORY OF PRESENT ILLNESS: This is a 49-year-old, male, with a medical history of sarcoma, chronic hydronephrosis, bowel obstruction, benign brain mass, and seizure. He presented to the ER early this morning, with altered mental status which progressively worsened. He eventually was intubated emergently in the ER. Further workup revealed severe acidosis including respiratory acidosis, high anion gap metabolic acidosis, and non-anion gap metabolic acidosis, acute on chronic kidney disease, and urinary tract infection. The patient currently is still intubated and sedated with Diprivan drip on. His systolic pressure stays on low 90s. There is no family at the bedside. All other information is collected through the E-chart. He apparently has been in similar situation last year on 06/16/2018. At that time, he also unfortunately developed seizures. PAST MEDICAL/SURGICAL HISTORY: 1. 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 2. Chronic hydronephrosis with right kidney completely malfunctioning. 3. Status post bladder augmentation. 4. History of bowel obstruction with ileostomy and colostomy. 5. History of benign brain mass with resection. 6. Seizure history. 7. Status post cochlear implant. 8. History of marijuana use. 9. Status post left shoulder surgery x2, and left hip arthroplasty. 10. History of craniotomy with ALGEBRAIST shunt placement. SOCIAL HISTORY: The patient uses marijuana occasionally for pain control. He has a mild remote history of tobacco use back to when he was in college. He has no history of alcohol or illicit drug use. FAMILY HISTORY: Positive for prostate cancer and multiple sclerosis. ALLERGIES: No known drug allergies. REVIEW OF SYSTEMS: Unable to be obtained. PHYSICAL EXAMINATION: Vital Signs: Temperature 98.2 degrees, blood pressure 95/61, pulse 76, respiratory rate 13, oxygen saturation 100% on AC mechanical ventilator with spontaneous rate 14, FiO2 of 40%, tidal volume 500, and PEEP 5. General: Chronically ill-appearing, sedated and intubated. No acute distress noted. HEENT: Atraumatic, normocephalic. Trachea midline. Mucosa pink and moist. Respiratory: Even and unlabored. Symmetrical excursion. Auscultation reveals mildly coarse on the bilateral upper lobes with some early inspiratory crackles bibasilarly. Cardiovascular: Regular rate and rhythm. Gastrointestinal: Soft, nondistended. Normoactive bowel sounds in all 4 quadrants. There is an ostomy bag on the left anterior lower quadrant with no stool noted. Extremities: No pedal edema. No cyanosis. No clubbing. Dorsalis pedis diminished bilaterally. Neurologic: Sedated, unresponsive to verbal stimuli. He did withdraw some when I am touching his bilateral lower extremities. LABORATORY DATA: White blood cell 7.82, hemoglobin 9.9, hematocrit 30.1, platelet 122,000. Sodium 142, potassium 3.4, chloride 113, carbon dioxide 9, BUN 48, creatinine 5.7, glucose 138, calcium 6.7. ABG, pH 7.02, pCO2 of 32, PO2 of 194, HC03 of 8.3, base excess - 21.4, and oxyhemoglobin 97.5. IMAGING DATA: Chest x-ray showed slight worsening of central infiltrates concerning for bronchopneumonia. ASSESSMENT: This is a 49-year-old, male, with a medical history of sarcoma, chronic hydronephrosis, bowel obstruction, benign brain mass, and seizure. He has been admitted to the ICU with severe acidosis including respiratory acidosis, high anion gap metabolic acidosis, and non-anion gap metabolic acidosis, acute on chronic kidney disease, urinary tract infection, and altered mental status with intubation required. 1. Acute hypoxic respiratory failure. 2. Right lower lobe bronchopneumonia. 3. Altered mental status. 4. Severe respiratory and metabolic acidosis. 5. Acute on chronic kidney failure. 6. Hypotension. PLAN: 1. Continue AC mechanical ventilator. 2. We will discontinue Diprivan, and start Ativan 2 mg q.4 hours as needed and morphine 4 mg q.4 hours as needed. 3. Continue antibiotic and the pressor as needed. 4. Follow up with ABG, CBC, BMP, sputum culture, urine culture, blood culture, and chest x-ray. 5. Dr. Eller is on board. 6. Further recommendations pending hospital course. Thank you for the courtesy of this consult. Dictated by RENU Truong for Cara Toledo MD cc: RENU Truong MD [facility]
--- NOTE | 2019-07-09 22:28 | HISTORY AND PHYSICAL ---
CHIEF COMPLAINT: Abnormal labs. DATE AND TIME: 07/09/2019 at 0330. HISTORY OF PRESENT ILLNESS: Mr. 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 Also secondary to his radiation therapy, he has had urinary problems. He has undergone a bladder surgery and does have problems with incontinence of urine as well. Due to chronic problems with high output from his colostomy he has frequent problems with dehydration and acute on chronic renal failure. The patient does receive a daily IV infusions of lactated Ringer's at home through a Port-A-Cath in his left chest. He receives anywhere from 1 L of lactated Ringer's up to at times 2 to 3 L if needed. He does have home health that comes out and sees him once a week. He gets labs drawn every week on Thursday as well. The patient initially presented to the ER with complaints of abnormal labs. He reported that [facility] and called informed him that his creatinine was elevated and he needed to go to the ER for evaluation. Upon patient arrival to the ER it was noted in the ER physician note that the patient had been reporting that he had some confusion as well. He mentioned that he could possibly have a kidney infection. He reported that his symptoms started at 1500 yesterday on 07/08/2019. He also reported some mid shoulder pain which he reportedly said was from cold weather though unfortunately while the patient was in the ER, he did begin to have worsening confusion and became unresponsive and was having respiratory difficulty. He ultimately did end up getting intubated by the ER physician. He has now received IV sedation as well though according to the patient's nurse though he was reporting some confusion, he was alert and oriented x3. He has been afebrile since arrival to the ER. He was just slightly tachycardic though blood pressures have been within normal limits. Oxygen saturation was 97 and 98% on room air initially though as previously mentioned he is intubated on mechanical ventilation at this time. Chemistries reveal a slightly low potassium at 3.3 though patient does have elevated BUN and creatinine BUN of 48, creatinine of 5.6 and GFR of 11. His previous creatinine that we have most recently on record was 2.1 in February 2019. Calcium 6.7, magnesium was 0.9, CK was 101, troponin was 0.034. EKG showed normal sinus rhythm with possible left atrial enlargement at a rate of 98 with a QTc of 485. Urinalysis did show positive for large leukocytes, too numerous to count white blood cells. Urine drug screen was positive for oxycodone. The patient does have a prescription for this. Head CT did not show any acute abnormality. He did have craniotomy changes. He also has a stable left frontal ventriculostomy shunt catheter which was noted to be in good position. Chest x-ray this time did not show any acute abnormalities and we are awaiting official radiology over-read. The patient though did have coarse lung sounds bilaterally upon auscultation. Arterial blood gas did show a pH of 6.9, pCO2 of 42, PO2 of 402, HC03 of 6.2 with a base excess of -24 with O2 saturation of 99.7. This is on 100% FiO2. Since receiving critical pH patient has been placed on a sodium bicarbonate drip. He will be placed in ICU for close monitoring. I did call and speak with the patient's on the phone. Her name is Sera. She did report that as previously mentioned they did call and tell him that he had abnormal labs after drawing his blood on Thursday. She did report that he had been he had some confusion at home though denies him reporting any other symptoms. She denied him reporting any chest pain, shortness of breath, cough, abdominal pain, nausea, vomiting or dysuria. She did not report him having any known changes in his color, consistency and the amount of output from his colostomy bag. She does report he has a history of depression though has never intentionally tried to harm himself or commit suicide in the past. Other than his pain medication which he routinely takes she denied him having possibly taking any other medications that could have caused his confusion possibly. She also denied him having any known recent seizures or missing any of his seizure medications or any changes recently to his seizure medications. We did discuss resuscitation status on the phone. She would like him to be a full code. REVIEW OF SYSTEMS: Unfortunately review of systems was not able to be performed the patient due to his current condition and mentation. PAST MEDICAL HISTORY: 1. 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 He received extensive radiation therapy which resulted in him getting radiation enteritis requiring multiple abdominal surgeries and subsequent colostomy. Also secondary to his radiation therapy he has had bladder surgery as well and does have incontinence of urine. He also has continued problems with high output from his colostomy and does receive daily lactated Ringer infusions at home via a left Port-A-Cath. 2. History of benign brain tumor which was reportedly meningioma. He did undergo surgery of a craniotomy and has a MANAGER SUPPLY CHAIN shunt. Also reportedly secondary to this surgery he does have loss of function to the right side of his face and head. He also had loss of hearing and now has a right side cochlear implant. 3. History of chronic renal failure. 4. History of seizures. 5. History of depression. PAST SURGICAL HISTORY: 1. Multiple abdominal surgeries resulting in colostomy placement. 2. Left Port-A-Cath placement. 3. History of a craniotomy with MANAGER SUPPLY CHAIN shunt placement. 4. Right-sided cochlear implant. 5. Bladder augmentation. 6. Left shoulder surgery. 7. Left hip replacement. SOCIAL HISTORY: The patient does live at home with his . He has no known tobacco, alcohol or illicit drug use. FAMILY HISTORY: Positive for his father having history of prostate cancer. His mother is reportedly healthy. He does have 1 sister who has ovarian cancer and does have multiple sclerosis. ALLERGIES: Patient has no known allergies. HOME MEDICATIONS: 1. Tegretol 200 mg p.o. b.i.d. 2. Ditropan 5 mg p.o. t.i.d. 3. Percocet 7.5 mg 1 p.o. t.i.d. p.r.n. for pain. 4. Potassium chloride 10 mEq p.o. daily. 5. Lyrica 75 mg p.o. b.i.d. 6. Phenergan 25 mg p.o. q.6 hours p.r.n. 7. Sertraline 100 mg p.o. daily. 8. Sodium bicarbonate 625 mg p.o. t.i.d. DIAGNOSTIC DATA: White blood cell count is 9700, hemoglobin 10.5, hematocrit 31.9, platelet count is 143,000. Sodium 142, potassium 3.3, chloride 113, serum bicarb 8, BUN 48, creatinine 5.6, GFR of 11, glucose 183, calcium 6.7, magnesium 0.9. Liver function tests are within normal limits except for alkaline phosphatase is elevated at 188. CK 101, troponin 0.034, plasma lactate is 0.7. Salicylate level is less than 3. Tylenol level is 7.9. Acetone level was negative. Arterial blood gases were obtained on 100% FiO2 with a pH of 6.9, pCO2 of 42, PO2 of 402, HCO3 6.2, base excess -24, O2 saturation of 99.7. Urine drug screen was positive for oxycodone and the patient does have a prescription for Percocet. Urinalysis did show protein, moderate blood, large leukocytes, too numerous to count white blood cells though was negative for nitrites, glucose, ketones or bacteria. EKG showed normal sinus rhythm with possible left atrial enlargement at a rate of 98 with a QTc of 45. Head CT did not show any acute abnormalities. There was a stable left frontal ventriculostomy shunt catheter which was noted to be in good position. Chest x-ray did not show any acute abnormality though we are awaiting official radiology over- read. PHYSICAL EXAMINATION: VITAL SIGNS: Temperature 98.2 degrees, heart rate 86, respirations 14, blood pressure is 110/70 with a MAP of 81, oxygen saturation 100% per mechanical ventilator. GENERAL: Mr. Jackson is a 49-year-old male he was resting in the ER stretcher with eyes closed. The patient is intubated and has been given sedation. The patient did not have localization of pain. He did have facial grimacing with painful stimuli. HEENT: Head is atraumatic, normocephalic. Pupils are 3 mm bilaterally though were sluggish. Oral mucosa is moist. NECK: Supple. Trachea midline. CARDIOVASCULAR: Patient has S1-S2 present. No murmurs, gallops, rubs appreciated with a regular rate and rhythm. PULMONARY: Patient has symmetrical chest expansion bilaterally. He does have coarse lung sounds noted bilateral chacko upon auscultation. ABDOMEN: Soft, does not appear to be distended, the patient did not have any guarding localization to pain or facial grimacing upon palpation. He does have a colostomy noted in the left center abdominal area. Stool in the colostomy bag was yellowish brown in color though did appear to have some blood noted. Hemoccult stool that we performed this was positive. EXTREMITIES: No cyanosis or edema noted at this time. The patient has been sedated so this exam is limited. He has had some facial grimacing though during the time of my assessment I have not seen the patient move his extremities though prior intubation ER staff reports that he was able to move all extremities. INTEGUMENT: Skin is pink, warm, and dry. NEUROLOGICAL: Patient is unfortunately been intubated and has received sedation at this time. Pupils are equal, round, reactive to light, were 3 mm bilaterally they was slightly sluggish. He is only having facial grimacing to painful stimuli at this time. Neurological exam is limited due to his current condition and mentation. ASSESSMENT AND PLAN: 1. Acute respiratory failure. The patient did become unresponsive and was having respiratory decompensation. He was intubated. He is on mechanical ventilator. He is receiving sedation as well. He does have coarse lung sounds bilaterally. We are awaiting official radiology over read of chest x-ray. We will place DuoNeb treatments, he has been placed on broad- spectrum antibiotics of vancomycin and Zosyn. Blood cultures have been obtained. We will repeat his ABG in approximately 2 to 3 hours. He did have a critical pH of 6.9 on previous arterial blood gas and has been placed on a sodium bicarbonate drip. Pulmonology has been consulted as well for assistance with ventilator management. 2. Acute on chronic kidney disease. Patient has had increase in his creatinine from 2.1 to 5.6. He does have frequent problems with dehydration. He also does have a urinary tract infection as well. We have placed antibiotics of vanc and Zosyn as mentioned above a urine culture has been ordered. He has received normal saline bolus. Will continue with IV fluid infusion of D5W with sodium bicarbonate at 120 mL/h. We have placed a consult with Dr. Eller, will await his evaluation and further recommendations for management as well. Will avoid nephrotoxic medications and renally dose medicines as necessary, will do strict intake and output. 3. Urinary tract infection. Continue with antibiotics as mentioned above. We are awaiting urine culture results. 4. Encephalopathy this is likely multifactorial secondary to possibly combination of like metabolic encephalopathy from renal failure and respiratory failure. We did perform a CT of the head as mentioned above. There are no acute abnormalities. MANAGER SUPPLY CHAIN shunt is in good position. We will continue to monitor this closely. 5. Electrolyte abnormalities. The patient did have slightly low potassium though given his acute renal failure we will just monitor this at the time. We are going to repeat a renal profile later on this morning. Though patient did have hypocalcemia with a calcium of 6.7 and hypomagnesemia with magnesium of 0.9. These have been replaced. We will recheck these later on this morning as well, will continue to monitor this closely. 6. History of multiple abdominal surgeries with colostomy placement. Patient does have continued problems with high output from his colostomy and has frequent problems with dehydration and acute renal failure. We will continue with IV hydration as mentioned above. The patient's stool did appear to have blood present. He did have a Hemoccult positive stool. We did go ahead and place some stool studies as well. 7. History of seizures. We have ordered a Tegretol level. We will continue to monitor him for any seizure activity. 8. History of ventriculoperitoneal shunt. 9. Deep vein thrombosis prophylaxis provided with sequential compression devices. The patient has been placed in intensive care unit for close monitoring of vital signs per intensive care unit protocol, will do strict intake and output. He will be on strict bed rest. He is NPO at this time. Further orders and recommendations pending hospital course, diagnostic studies and physician evaluation. Dictated by RENU Borrero for Elgin Moss MD cc: Elgin Moss MD [facility]
[2019-07-10] MEDS: DUONEB (A & A) INH SCH ×4 (03:02→23:20)
[2019-07-10] MEDS: MORPHINE IV PRN (03:10)
[2019-07-10] MEDS: ATIVAN 20 MG in NS 190 ML IV SCH ×3 (04:03→20:07)
[2019-07-10] MEDS: SODIUM CHLORIDE 0.9% INJ SCH (04:41)
[2019-07-10] MEDS: PROTONIX IV SCH ×2 (04:41→16:24)
[2019-07-10 04:49] LABS: ALLEN TEST YES; BE -14.1 mmoll (-3.0-3.0); BLOOD TYPE ARTERIAL; HCO3-(ACT) 13.9 mmoll (20.0-26.0); O2(CT) 13.7 mL/dL (15.0-23.0); O2HB 96.8 % (95.0-99.0); PCO2(98.6) 34 mmHg (35-45); PO2(98.6) 131 mmHg (60-100); SAMPLE BLOOD; SRATE 14 BPM; THB 9.9 g/dL (11.5-17.4); TVOL 500 mL
[2019-07-10 04:50] LABS: MODALITY VENTILATOR; pH(98.6) 7.19 (7.35-7.45)
[2019-07-10 04:51] LABS: BASO# 0.01 X1000 (0.0-0.2); BASO% 0.1 % (0.0-0.8); EOS# 0.15 X1000 (0.0-0.7); EOS% 1.8 % (0.0-10.0); HEMATOCRIT 27.3 % (42.0-52.0); HEMOGLOBIN 9.3 g/dL (14.0-18.0); LYMPH# 1.13 X1000 (1.2-3.4); LYMPH% 13.2 % (20.5-51.1); MCHC 34.1 g/dL (33-37); MONO# 1.16 X1000 (0.11-0.59); MONO% 13.6 % (1.7-9.3); MPV 9.6 FL (7.4-10.4); NEUT# 6.08 X1000 (1.4-6.5); NEUT% 71.3 % (42.2-75.2); PLT 135 X1000 (130-400); RBC 3.21 XMIL (4.7-6.1); WBC 8.53 X1000 (4.8-10.8)
[2019-07-10 05:17] LABS: CALCIUM 6.1 mg/dL (8.8-10.2); CREATININE 6.2 mg/dL (0.7-1.2)
[2019-07-10 05:19] LABS: POTASSIUM 2.4 mmol/L (3.5-5.1)
[2019-07-10] MEDS ORDERED: CALCIUM GLUCONATE 2 GM in NS 100 ML IV ONE ×2 (06:13→18:00)
[2019-07-10] MEDS ORDERED: FENTANYL ONE (06:30)
[2019-07-10] MEDS ORDERED: VERSED ONE (06:30)
[2019-07-10] MEDS ORDERED: XYLOCAINE-MPF 2% ONE (06:31)
[2019-07-10] MEDS ORDERED: DIPRIVAN 1% ONE (06:31)
[2019-07-10] MEDS: SODIUM BICARBONATE 8.4% 150 MEQ in D5W 1,000 ML IV SCH ×3 (06:37→19:07)
[2019-07-10] MEDS: POTASSIUM CHLORIDE 20 MEQ/SWI 20 MEQ/100 ML IVPB IV SCH ×6 (06:40→20:36)
[2019-07-10] MEDS ORDERED: MAGNESIUM SULFATE 2 GM/S.W.I. 2 GM/50 ML IVPB IV ONE (07:19)
--- NOTE | 2019-07-10 08:32 | PROGRESS NOTE ---
DATE: 07/10/2019 SUBJECTIVE: Today, Mr. Carolina continues to be intubated. Per the nursing staff, he has not had any urine output and ostomy also had 0 output. He will follow some commands. OBJECTIVE: Vital signs: Blood pressure is 128/76, pulse 85, temperature 98.4 degrees. Patient did have a T-max of 100.9 degrees at 16:00 yesterday. General: Mr. Carolina is a 49-year-old gentleman. He is in bed. He is currently intubated. HEENT: Mucosa is pink. He looks slightly puffy in his face. Neck: Supple. Chest: Air entry is bilaterally reduced. There are some crackles in the posterior lung chacko. Cardiovascular: Regular rate and rhythm. No murmurs, no rubs, no gallops. Abdomen: Soft. There is an infraumbilical surgical scar. There is also a small scar on the right lower abdomen. Ostomy bag is on the left side of the lower abdomen, is completely dry. Hewitt catheter is in place with 0 output. Scrotum looks slightly swollen. Extremities: About 1 to 2+ pedal edema. There is also some swelling around the lateral aspect of the abdominal wall. 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 Gets intermittent morphine as well. Fecal output is 0. Urine output 50 has been documented. That was an initial, but for the whole of yesterday and this morning, 0 output. The patient is still positive balance of 4846. LABORATORY DATA: WBC is 8.53, hemoglobin is 9.3, platelet count of 135,000. ABG: pH is 7.19, pCO2 of 34, PaO2 of 131. This is on the ventilator AC mode with FiO2 of 30, tidal volume 500, PEEP of 5, and spontaneous rate of 14. The patient's chemistry: Sodium is 140, potassium is 2.4, chloride is 107, bicarb is 13. The creatinine is 6.3. The patient's calcium is 6.1, magnesium is 1.0. Acetone level was negative. Carbamazepine level is 4, which is actually on the lower end of normal. IMAGING STUDIES: Done yesterday, a renal ultrasound did show severe bilateral hydronephrosis, severe atrophy of the left kidney. A CAT scan which was done shows severe worsening hydronephrosis of the right kidney. There was a stable massive hydronephrosis of the left kidney with severe cortical atrophy. There is also new severe distention of the bowel loops in the pelvis, nonspecific, but this may be obstructed. A chest x-ray this morning showing some interstitial infiltrates, but otherwise no fluid, no consolidation. There is a left shoulder arthroplasty. ASSESSMENT: 1. Acute respiratory failure. Patient continues to be on the ventilator. Pulmonary medicine is on board. 2. Acute on chronic kidney failure with anuria. The patient has had 0 urine output in 24 hours. He is currently more than 4000 fluid positive balance. He is looking more edematous. At this point, I think he is going to be needing renal replacement therapy. Nephrology is on board and will be pending their evaluation today. 3. Acute hypercarbic respiratory failure. Patient is on the ventilator. 4. Triple acidosis. The patient is on bicarb drip and ventilator to address the respiratory acidosis as well. 5. Altered mental status secondary to metabolic encephalopathy. 6. Bilateral severe hydronephrosis with chronic left renal atrophy. The patient is pending urological intervention today with possible stent into the right ureter to relieve that pressure. Hopefully once that is done, he might start making some urine and might avoid renal replacement therapy. 7. Dilated loops of bowel concerning for intestinal obstruction. We will consult Surgery today. NG tube was placed in yesterday and intermittent suctioning, however nothing has come out. 8. Hypotension, improved. The patient has not needed pressor. 9. History of seizure disorder. 10. History of Leon sarcoma of the coccyx, status post radiation therapy, which has been complicated with radiation enteritis leading into colostomy, also bladder dysfunction and chronic obstructions. The patient is status post partial colostomy. He also had augmented bladder with reimplanted ureters into the augmented part of the bladder. Urology has been consulted. 11. Remote history of brain meningioma status post ventriculoperitoneal shunt noted. 12. Right lower lobe bronchopneumonia. We will continue with current antimicrobial therapy. Patient is on Zyvox and cefepime. Today is day 1 of antibiotic therapy. 13. Electrolyte abnormality including hypopotassemia, hypocalcemia and hypomagnesemia. We will continue to replace all of these. PLAN: In general, Mr. Jackson continues to be remarkably sick. He is now obviously volume overloaded. He is positive over 4000 fluid balance. He is pending urological intervention today with possible stent placement in the right ureter. He has chronically atrophic left kidney. So for he is working with only 1 kidney for most part. Hopefully, he is able to bounce back once the stent is placed in. It appears to me, however, that he might be needing renal replacement soon. Nephrology is on board and we will follow up with their recommendations. Mr. Jackson also has dilated loop of bowels, which is concerning for obstruction and we are consulting surgery today. Mr. Jackson continues to be critically sick. We are pending the family members to discuss my findings and the care going forward. Critical time spent is 45 minutes. cc: Hermes Vázquez MD MTDD
--- NOTE | 2019-07-10 08:46 | Diag Imaging Result Doc PS360 ---
CHEST-1 VIEW - 07/10/2019 INDICATION: SOB COMPARISON: 07/09/2019 FINDINGS: Support tubes are stable and in good position. There is some faint central infiltrates bilaterally that has improved since prior. Heart size and pulmonary vascularity is normal. No pneumothorax or pleural effusion. IMPRESSION: Improvement in the faint central infiltrates bilaterally. Electronically signed by Avery Murphy 07/10/2019 8:44 AM
[2019-07-10] MEDS: MAXIPIME 1 GM in NS 50 ML IV SCH ×2 (09:29→20:38)
[2019-07-10] MEDS: ZYVOX 600 MG/D5W 600 MG/300 ML IVPB IV SCH ×2 (09:29→21:18)
[2019-07-10 11:11] LABS: ALBUMIN 2.5 g/dL (3.5-5.0); PHOSPHORUS 4.6 mg/dL (2.7-4.5)
[2019-07-10 11:14] LABS: CALCIUM 6.6 mg/dL (8.8-10.2); POTASSIUM 2.3 mmol/L (3.5-5.1)
[2019-07-10] MEDS ORDERED: POTASSIUM CHLORIDE 40 MEQ/SWI 40 MEQ/100 ML IVPB IV ONE (11:15)
[2019-07-10 12:28] LABS: UR CREAT RANDOM 20.7 mg/dL (14-26)
[2019-07-10] MEDS ORDERED: CALCIUM GLUCONATE IV ONE (13:30)
[2019-07-10] MEDS ORDERED: NS IV ONE (13:30)
[2019-07-10 16:25] LABS: CALCIUM 7.5 mg/dL (8.8-10.2); CREATININE 6.5 mg/dL (0.7-1.2)
--- NOTE | 2019-07-10 16:26 | CONSULTATION ---
DATE OF CONSULTATION: 07/10/2019 HISTORY: The patient was admitted with confusion and shortness of breath. He presented to the emergency department where it was noted that he was acidotic with an elevated creatinine. He had to be intubated and sedated. His abdominal and pelvic CT scan suggested worsening hydronephrosis involving the right kidney and severe distention of bowel loops in the pelvis which was felt to be nonspecific. He does have a complicated abdominal history with a history of Leon sarcoma. He has required radiation to his pelvis. He has had augmentation of the bladder using small bowel. He also has an end colostomy. He is admitted to our ICU. He has had no output from his ostomy in several days. His abdomen is distended. This morning he went to the operating room for attempts at stent placement, right ureter, per Dr. Victoria. PAST SURGICAL HISTORY: Left hip replacement, end-colostomy, cochlear implant, SLURRY TANK TENDER shunt, bladder augmentation using small bowel. Dr. Heredia performed his colostomy. At that time it was an 11 hour operation. MEDICATIONS: Protonix, albuterol, Ditropan, Lyrica, carbamazepine, sertraline, Phenergan, sodium bicarb, oxycodone, potassium chloride. ALLERGIES: No known drug allergies. SOCIAL HISTORY: His family was at the bedside. He is not a smoker. REVIEW OF SYSTEMS: A 14-point review of systems was reviewed with the family and was essentially negative except for the history of present illness. PHYSICAL EXAM: Vital Signs: Heart rate 85, blood pressure 128/76, O2 saturation 100%. He is afebrile. HEENT: He has an NG tube in place. He is on the ventilator. He is sedated his heart has a regular rate. Lungs: Clear. Abdomen: Distended tightly. He has a left sided ostomy where there is no output. Rectal: Rectal exam was not performed. Extremities: He does have palpable femoral pulses. He has no significant peripheral edema. Neurologic: It is reported he has no focal deficits. LABS: His white blood cell count is normal. Hematocrit is 27%. His electrolytes show a BUN of 47 and creatinine is 7.0. His creatinine is going up steadily. His potassium was 2.3 this morning. IMAGING: The films suggest dilated loops of bowel. This could be ileus secondary to his acute renal failure versus obstruction secondary to all his previous abdominal surgery. PLAN: Any surgery on his abdomen would be high risk and we would have to discuss where that would take place, here in [place] versus [place] setting because of his bladder augmentation with small bowel and also difficult past surgery and radiation to his abdomen. Certainly any abdominal surgery could be life threatening. This also could be an ileus because of his right hydronephrosis and renal failure and NG tube is in place. He is being supported with IV medications and fluids. I did discuss this at the bedside with his family. cc: Blossom Clayton MD
[2019-07-10 16:35] LABS: POTASSIUM 2.3 mmol/L (3.5-5.1)
[2019-07-11] MEDS: POTASSIUM CHLORIDE 20 MEQ in NS 100 ML IV SCH ×4 (00:38→08:55)
[2019-07-11] MEDS: ATIVAN 20 MG in NS 190 ML IV SCH ×4 (01:26→19:13)
[2019-07-11] MEDS: MORPHINE IV PRN ×2 (02:39→20:00)
[2019-07-11] MEDS: SODIUM BICARBONATE 8.4% 150 MEQ in D5W 1,000 ML IV SCH ×3 (03:20→21:33)
[2019-07-11] MEDS: DUONEB (A & A) INH SCH ×4 (03:39→21:06)
[2019-07-11 04:28] LABS: BASO# 0.01 X1000 (0.0-0.2); BASO% 0.1 % (0.0-0.8); EOS# 0.18 X1000 (0.0-0.7); EOS% 2.3 % (0.0-10.0); HEMATOCRIT 25.3 % (42.0-52.0); HEMOGLOBIN 8.7 g/dL (14.0-18.0); LYMPH# 0.87 X1000 (1.2-3.4); LYMPH% 11.2 % (20.5-51.1); MCH 28.9 PG (27-31); MCHC 34.4 g/dL (33-37); MCV 84.1 FL (81-99); MONO# 1.13 X1000 (0.11-0.59); MONO% 14.5 % (1.7-9.3); MPV 9.1 FL (7.4-10.4); NEUT# 5.61 X1000 (1.4-6.5); NEUT% 71.9 % (42.2-75.2); PLT 142 X1000 (130-400); RBC 3.01 XMIL (4.7-6.1); RDW 12.9 % (11.5-14.5)
[2019-07-11] MEDS: PROTONIX IV SCH ×2 (04:28→17:44)
[2019-07-11 05:00] LABS: CALCIUM 7.1 mg/dL (8.8-10.2); CREATININE 6.6 mg/dL (0.7-1.2); POTASSIUM 2.6 mmol/L (3.5-5.1)
[2019-07-11 05:03] LABS: ALLEN TEST YES; BE -7.9 mmoll (-3.0-3.0); BLOOD TYPE ARTERIAL; HCO3-(ACT) 18.8 mmoll (20.0-26.0); METHB 0.9 % (0.0-1.5); O2(CT) 9.7 mL/dL (15.0-23.0); O2HB 96.7 % (95.0-99.0); PCO2(98.6) 35 mmHg (35-45); PO2(98.6) 122 mmHg (60-100); SAMPLE BLOOD; SRATE 14 BPM; THB 6.9 g/dL (11.5-17.4); TVOL 500 mL; pH(98.6) 7.31 (7.35-7.45)
[2019-07-11 05:04] LABS: MODALITY VENTILATOR
[2019-07-11] MEDS ORDERED: MAGNESIUM SULFATE 2 GM/S.W.I. 2 GM/50 ML IVPB IV ONE (05:08)
--- NOTE | 2019-07-11 06:57 | Diag Imaging Result Doc PS360 ---
EXAM: CHEST-1 VIEW 07/11/2019 HISTORY: SOB TECHNIQUE: AP portable upright at 0451 COMMENT: There is ill-defined parahilar opacity in the right upper lobe and particularly in the right base. The latter is slightly worse than on 07/10/2019. There is also some platelike opacity in the left lower lobe. Compared to 07/09/2019 the atelectasis in the left lower lobe has improved and the opacity in the right upper lobe is slightly better. The right lower and/or middle lobe opacity has worsened however. IMPRESSION: Worsened pneumonia right lower and/or middle lobe. Electronically signed by Christiano Wise 07/11/2019 6:55 AM
--- NOTE | 2019-07-11 07:46 | PROGRESS NOTE ---
DATE: 07/11/2019 SUBJECTIVE: This morning Mr. Jackson continues to be intubated and sedated on Ativan drip. Per the nursing staff, the night was fairly stable. He has been making adequate urine throughout the night. His electrolytes have been replaced per protocol. No family member at the bedside. OBJECTIVE: Vital signs: Blood pressure 122/75, pulse 88, respirations 15, and temperature 98.7 degrees. Patient has a T-max of 99.8 degrees on 07/10 at 16:00. General: Mr. Jackson is a 49-year- old gentleman. He is in bed, and continues to be intubated and sedated. HEENT: Mucosa is pink and moist. Anicteric. Acyanotic. Neck: Supple. There is no JVD. Chest: Air entry is bilaterally reduced with a few crackles in the posterior lung chacko. Cardiovascular: Regular rate and rhythm. No murmurs, no rubs, no gallops. Abdomen: Soft. There is an infraumbilical surgical scar. There is also a right lower abdomen surgical scar. Ostomy bag is on the left side which is completely dry. There is a Hewitt catheter in place, and the scrotum is minimally swollen. The patient has about 1+ pedal edema on the upper extremities and the lower extremities. CLIMATE CHANGE RISK ASSESSOR: He continues to be intubated and sedated on Ativan. He will intermittently groan and wrinkle the face. He will also withdraw all lower extremities to painful stimulation. LABORATORY DATA: WBC is 7.80, hemoglobin is 8.7, and platelet count of 142,000. Chemistry is also reviewed. Sodium is 144, potassium is 2.6, chloride is 104, bicarb is 17, and creatinine remains at 6.4. A sputum culture has grown gram-positive cocci. Patient is already on Zyvox. The patient's I's and O's, urine output was 2815, and is currently positive balance of over 7000. IMAGING STUDIES: This morning a chest x-ray shows worsening pneumonia in the right lower and/or middle lobe. Urological intervention was done yesterday. I am still waiting on the official report which has not come up yet. ASSESSMENT: 1. Acute respiratory failure. Patient continues to be on the ventilator. Pulmonary Medicine is on board. 2. Right lower/middle lobe pneumonia. The patient is currently on Zyvox and cefepime. Sputum culture is growing gram-positive cocci. We are going to continue to monitor. We will also get ID to evaluate him. 3. Acute on chronic renal failure with anuria on presentation. Urine output has significantly improved after the urological intervention. 4. Obstructive uropathy. The patient has a Hewitt catheter replaced by Urology, and I understand cystoscopy and other urological intervention were performed yesterday, and still awaiting the official report. 5. Triple acidosis on presentation improved. 6. Altered mental status secondary to metabolic encephalopathy. 7. Bilateral severe hydronephrosis with chronic left renal atrophy. 8. Dilated loops of bowel concerning for intestinal obstruction. NG tube is in place. The patient has been evaluated by Surgery. Recommendation is to continue treating conservatively. 9. Shock, presumably septic. The patient is on antimicrobial coverage. He did not need any pressor. He has responded well to fluid resuscitation. 10. 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 11. Remote history of brain meningioma status post tumor resection and INSURANCE ADJUSTER shunt noted. 12. Electrolyte abnormality. We will continue replacing per protocol. Critical time spent 45 minutes cc: MD KAROLINE Paulino
[2019-07-11] MEDS ORDERED: NS 500 ML ONE (09:28)
[2019-07-11] MEDS ORDERED: XYLOCAINE 1% ONE (09:28)
[2019-07-11] MEDS: MAXIPIME 1 GM in NS 50 ML IV SCH ×2 (09:36→20:02)
--- NOTE | 2019-07-11 10:29 | Diag Imaging Result Doc PS360 ---
EXAM: FLUROSCOPY CYSTO 07/10/2019 HISTORY: ATTEMPTED CYSTO TECHNIQUE: Seven images, COMMENT: Cystoscopy was performed and attempt was made to cannulate the left ureteral orifice, without apparent success. IMPRESSION: Limited study as described. Electronically signed by Christiano Wise 07/11/2019 10:27 AM
--- NOTE | 2019-07-11 10:37 | NEPHROLOGY PROGRESS NOTE ---
DATE: 07/11/2019 INCOMPLETE REPORT-- DICTATION STARTS HERE. SUBJECTIVE: Patient remains sedated and mechanically ventilated. OBJECTIVE: Vital Signs: Temperature 98.7 degrees, pulse 86, respiratory rate 19, blood pressure 122/75. Intake 5.7 L; output 3.2 L. General: This is an acutely ill- appearing, middle-aged gentleman resting in bed. He is currently sedated, mechanically ventilated. HEENT: Normocephalic, atraumatic. His oral mucosa is dry. He is orally intubated. Neck: Supple without JVD. Cardiovascular: Regular rate and rhythm. Occasionally tachycardic. Pulmonary: Equal excursion. He is clear bilaterally. There is no increased work of breathing. He is mechanically ventilated. Abdomen: Soft. Hypoactive bowel sounds. He has colonoscopy, left quadrant. : Hewitt catheter. There is clear urine. Extremities: Trace edema. He has pitting edema to backs of thighs. Integumentary: No rash or lesions. ABORATORY DATA: WBC of 7.8, hemoglobin 8.7. Sodium 141, potassium 2.6, chloride 104, CO2 of 17, BUN 44, creatinine 6.6. ABGs: PH 7.3, pCO2 of 35, PaO2 of 122, bicarb 18.8, base excess -7.9. ASSESSMENT AND PLAN: 1. Acute kidney injury in the setting of severe bilateral obstruction and acidosis. His renal function has been fairly stable after stenting. Urine output is picking up. He made greater than 3 liters of urine yesterday. His CO2 is slowly improving. His BUN is slowly improving. Will make no changes to his current treatment plan. 2. Electrolytes and acid-base balance. See above. 3. Bilateral obstruction. Followed by Urology. Back to the OR today. Dictated by RENU No for Rodriguez Eller MD cc: Rodriguez Eller MD Dictated by: Carmen Escobedo Dictated: 07/11/19 0955 Transcribed by: OST - 07/11/19 1038 CC: Rodriguez Eller MD INCOMPLETE REPORT-- DICTATION ENDS HERE. Dictated by RENU No for Rodriguez Eller MD cc: Rodriguez Eller MD [facility]ENTER[facility]
[2019-07-11] MEDS: ZYVOX 600 MG/D5W 600 MG/300 ML IVPB IV SCH ×2 (10:39→21:33)
[2019-07-11] MEDS ORDERED: NEO-SYNEPHRINE ONE (11:40)
[2019-07-11] MEDS ORDERED: VERSED ONE (12:11)
--- NOTE | 2019-07-11 13:09 | Diag Imaging Result Doc PS360 ---
EXAM: NEPHROSTOGRAM NEW ACCESS INDICATION: has right hydronephrosis, failed cystoscopy/stent TECHNIQUE: COMPARISON: None. FINDINGS: Consent was obtained by proxy from the patient's as the patient was sedated and on a ventilator. The patient was placed in a prone position General anesthesia was provided by the anesthesiology department. Local anesthesia was achieved with 1% lidocaine solution. Using ultrasound guidance, the dilated right renal collecting system was accessed with an introducer needle. Approximately 10 mL of Omnipaque contrast was injected through the introducer needle opacifying the right renal collecting system. Progressive tissue dilation was performed over wire. Then a 10-Swiss pigtail drainage catheter was placed over wire in the right renal collecting system with fluoroscopy guide. After confirming good urine flow, the pigtail catheter was secured with silk suture and a locking catheter dressing. There were no known complications. IMPRESSION: Technically successful percutaneous right nephrostomy. Electronically signed by Yoni Lazaro 07/11/2019 1:07 PM
[2019-07-11] MEDS: ATIVAN IV PRN (14:15)
--- NOTE | 2019-07-11 16:13 | PROGRESS NOTE ---
DATE: 07/11/2019 Mr. Charles Jackson 49-year-old white male who is on the ventilator. He underwent nephrostomy tube right kidney earlier today. He is in acute renal failure with a BUN and creatinine of 44 and 6.6. White blood cell count is normal. His hematocrit is 25%. He has an ostomy and has had very little output since his admission. He has had multiple surgeries and a complicated past medical history. Hopefully with the placement of the nephrostomy tube and treatment with antibiotics, an abdominal ileus will improve and his ostomy will begin functioning. His heart rate is 86, blood pressure 120/79, O2 saturation 100%. He is afebrile. He is on Zyvox, Maxipime. cc: Blossom Clayton MD
[2019-07-11] MEDS: SODIUM CHLORIDE 0.9% INJ SCH (17:44)
--- NOTE | 2019-07-11 19:21 | PROGRESS NOTE ---
ADDENDUM: Mr. Carolina was taken to OR today for a nephrostomy tube placement, which was successfully done by IR. Postoperatively, he was brought back to the ICU. I saw him this evening. He remains quite stable under the ventilator. The nephrostomy tube on the right side is draining adequate urine. He still has the Hewitt catheter in place which seems to also be making urine. Our plan is to continue the current plan with antimicrobial, the IV fluids, replace his electrolytes and follow the output on the nephrostomy tube. Will be pending further recommendations from Pulmonary Medicine as to when SBT and weaning trial can be initiated. Please refer to the details of my progress note earlier on today. cc: Hermes Vázquez MD
[2019-07-11] MEDS: POTASSIUM CHLORIDE 20 MEQ/SWI 20 MEQ/100 ML IVPB IV SCH (23:33)
[2019-07-12] MEDS: ATIVAN 20 MG in NS 190 ML IV SCH ×2 (00:57→06:15)
[2019-07-12] MEDS: POTASSIUM CHLORIDE 20 MEQ/SWI 20 MEQ/100 ML IVPB IV SCH ×2 (01:20→23:55)
[2019-07-12] MEDS: MORPHINE IV PRN ×2 (02:07→05:37)
[2019-07-12] MEDS: DUONEB (A & A) INH SCH ×4 (03:18→21:07)
[2019-07-12 04:36] LABS: BASO# 0.01 X1000 (0.0-0.2); BASO% 0.1 % (0.0-0.8); EOS% 3.4 % (0.0-10.0); MCV 84.5 FL (81-99); RDW 13.1 % (11.5-14.5)
[2019-07-12 04:41] LABS: ALLEN TEST YES; BE -2.2 mmoll (-3.0-3.0); BLOOD TYPE ARTERIAL; HCO3-(ACT) 23.2 mmoll (20.0-26.0); METHB 1.2 % (0.0-1.5); O2(CT) 17.3 mL/dL (15.0-23.0); O2HB 96.3 % (95.0-99.0); PCO2(98.6) 37 mmHg (35-45); PO2(98.6) 127 mmHg (60-100); SAMPLE BLOOD; SAO2 98.8 % (95.0-100.0); SRATE 14 BPM; THB 12.6 g/dL (11.5-17.4); TVOL 500 mL; pH(98.6) 7.39 (7.35-7.45)
[2019-07-12] MEDS: SODIUM CHLORIDE 0.9% INJ SCH ×2 (04:42→18:08)
[2019-07-12] MEDS: PROTONIX IV SCH ×2 (04:42→18:08)
[2019-07-12 04:43] LABS: MODALITY VENTILATOR
[2019-07-12 04:54] LABS: HEMATOCRIT 26.1 % (42.0-52.0); HEMOGLOBIN 8.8 g/dL (14.0-18.0); IMM GRAN# 0.02 X1000 (0.0-0.04); IMM GRAN% 0.2 % (0.0-0.5); LYMPH# 1.09 X1000 (1.2-3.4); LYMPH% 12.5 % (20.5-51.1); MCH 28.5 PG (27-31); MCHC 33.7 g/dL (33-37); MONO# 0.82 X1000 (0.11-0.59); MONO% 9.4 % (1.7-9.3); MPV 9.1 FL (7.4-10.4); NEUT% 74.4 % (42.2-75.2); PLT 153 X1000 (130-400); RBC 3.09 XMIL (4.7-6.1); WBC 8.74 X1000 (4.8-10.8)
[2019-07-12 05:21] LABS: ALBUMIN 2.6 g/dL (3.5-5.0); CREATININE 6.3 mg/dL (0.7-1.2); MAGNESIUM 1.4 mg/dL (1.5-2.7); PHOSPHORUS 3.4 mg/dL (2.7-4.5)
[2019-07-12 05:22] LABS: POTASSIUM 2.5 mmol/L (3.5-5.1)
[2019-07-12 06:27] LABS: ALB/GLOB RATIO 1.1; ALBUMIN 2.6 g/dL (3.5-5.0); POTASSIUM 2.6 mmol/L (3.5-5.1); TOTAL BILIRUBIN 0.23 mg/dL (0.20-1.00)
[2019-07-12] MEDS ORDERED: POTASSIUM CHLORIDE 40 MEQ/SWI 40 MEQ/100 ML IVPB IV ONE ×2 (06:34→15:06)
[2019-07-12] MEDS ORDERED: CALCIUM GLUCONATE 2 GM in D5W 100 ML IV ONE (06:45)
--- NOTE | 2019-07-12 06:58 | Diag Imaging Result Doc PS360 ---
EXAM: CHEST-1 VIEW 07/12/2019 HISTORY: SOB TECHNIQUE: AP portable upright at 0449 COMMENT: There is ill-defined opacity in the right base and to a lesser extent in the right upper lobe and left lower lobe. This has not changed appreciably since the previous study of 07/11/2019. IMPRESSION: Bronchopneumonia, stable. Electronically signed by Christiano Wise 07/12/2019 6:56 AM
[2019-07-12] MEDS ORDERED: DIPRIVAN 1% IV PRN (07:52)
[2019-07-12] MEDS: DIPRIVAN 1% 1,000 MG/100 ML BOTTLE IV SCH ×2 (08:39→23:32)
[2019-07-12] MEDS ORDERED: MAGNESIUM SULFATE 2 GM/S.W.I. 2 GM/50 ML IVPB IV ONE (09:43)
[2019-07-12] MEDS: ZYVOX 600 MG/D5W 600 MG/300 ML IVPB IV SCH ×2 (10:52→21:29)
[2019-07-12] MEDS: SODIUM BICARBONATE 8.4% 150 MEQ in D5W 1,000 ML IV SCH (13:36)
--- NOTE | 2019-07-12 14:30 | PROGRESS NOTE ---
DATE: 07/12/2019 SUBJECTIVE: The patient has no major complaints. He is intubated and sedated. OBJECTIVE: Blood pressure 122/69, heart rate of 91, respiratory rate 18, 100% saturation on 30%, 98.8 temperature. Cardiovascular: Regular rate and rhythm. Pulmonary: Bilateral breath sounds clear to auscultation. GI: Soft, nontender, nondistended. Bowel sounds were positive. Laboratory Data: White count is 8, hemoglobin and hematocrit 8 and 26, platelets 153,000. PH of 7.39, pCO2 of 37, PaO2 of 127. Potassium is 2.6, BUN and creatinine are 43 and 6, calcium of 7, magnesium of 1.4, albumin at 2.6. PROBLEM LIST: 1. Acute on chronic respiratory failure related to mechanical ventilation. Pulmonary is following, Dr. Toledo. I do not think he has passed his spontaneous breathing trials yet, although I think they are going to try again tomorrow. He is on 30%. 2. Right methicillin-resistant Staphylococcus aureus pneumonia. He is on Zyvox and cefepime. I think we can probably stop the cefepime but Dr. Guerrero is consulted so that will be at his discretion. I think he already has stopped the cefepime. We will continue to monitor closely. 3. Acute on chronic renal failure. This continues to be a persistent issue. His ins and outs are good. His urine output was 2 L yesterday, 2900, and his creatinine has improved a little bit. He is status post nephrostomy. 4. Obstructive uropathy. He has a Hewitt and a nephrostomy. Urology is following. 5. Disposition, pending his clinical recovery, although I think today, to me, his chest x-ray looks a little bit better. He seems to be doing better. I do not think he is still on the Levophed as far as for his blood pressure, but we will continue to monitor. cc: Lance Rodriguez MD
--- NOTE | 2019-07-12 14:49 | INFECTIOUS DISEASE CONSULT REP ---
DATE: 07/11/2019 CONCLUSION: The patient has a methicillin-resistant Staph aureus right upper lobe, right lower lobe and left lower lobe pneumonia. The patient had a Clostridium difficile toxin which was negative. RECOMMENDATIONS: I agree with treating the patient with Zyvox especially because the patient is in renal failure. I have discontinued cefepime. I have gone ahead and ordered a Clostridium difficile antigen. DISCUSSION: The patient is intubated and no family member is present. The information about the patient I have is from the computer. There is no family member present. The patient was admitted with a chief complaint of abnormal laboratory studies. PRESENT ILLNESS: The patient has developed a methicillin-resistant Staph aureus pneumonia as mentioned above. He also is in renal failure. He had a blockage in his ureter and a it was attempted to put in a stent, but it was unable to be put in, so he now has a right nephrostomy tube in place. LABORATORY STUDIES: Thus far show a CBC with a white count of 8740, hemoglobin 8.8, and platelet count 153,000. Blood gases show a pH of 7.39, a PO2 of 127, and a pCO2 of 37. Creatinine is 6. GFR is 10. Liver function studies are normal. As mentioned above, the patient's sputum grew methicillin-resistant Staph aureus. The patient's blood cultures are negative and the urine culture grew no pathogens. The patient's Clostridium difficile toxin is negative. Stool culture was negative as well. PAST MEDICAL HISTORY: Positive for Leon sarcoma of the coccyx for which the patient received radiation therapy. He also ended up having to have his left hip replaced. 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 Also the radiation therapy caused the patient the need to have bladder surgery and incontinence of urine. He has also a benign brain tumor which was reported to be a meningioma. He underwent surgery for that. He has a PRE CODER shunt in place. He as a result of the tumor and surgery has a loss of function of the right side of the face. He also has loss of hearing. The patient has chronic renal failure, seizures, and depression. PAST SURGICAL HISTORY: Includes multiple abdominal procedures and also creation of a colostomy. The patient has a left Port-A-Cath in place. The patient has had a craniotomy with a PRE CODER shunt placed. The patient has a right-sided cochlear implant. He has had bladder augmentation, left shoulder surgery and a left hip replacement. SOCIAL HISTORY: The patient lives at home with his . He does not have a history of cigarette smoking, drinking alcoholic beverages or use of illicit drugs. FAMILY HISTORY: Positive for prostate cancer, ovarian cancer and multiple sclerosis. ALLERGIES: The patient has no known drug allergies his. MEDICATIONS: Taken at home include the following carbamazepine, Myrbetriq, Ditropan, Oxycodone, Lyrica, Phenergan sertraline and sodium bicarbonate. PHYSICAL EXAMINATION: Vital Signs: Temperature is 99 degrees, pulse 94, respirations 26, blood pressure is 114/63. The patient is 5 feet 10 inches tall, weighs 162 pounds. General: This is an ill-appearing middle-aged male. He is intubated and sedated. Head/eyes/ears/nose/throat: He has an orotracheal tube and a nasogastric tube in place. There is no drainage from his nose or the ears. The patient has a metal object on the right parietal side of his head and this is the patient's cochlear implant. Neck: No meningismus. Thorax: The patient has a left chest Port-A- Cath. Lungs: Clear to auscultation. Cardiovascular: Regular heart rate. Abdomen: Soft and not tender. An ostomy is in place and it is functional. Neurologic: The patient is obtunded. He did respond to verbal stimuli. There was no tremor. INTEGUMENT: Integument I did not notice a rash. Thank you for the consult. cc: Uriel Guerrero MD [facility]
[2019-07-12 15:03] LABS: INR 1.38; PROTIME 17.3 Seconds (11.0-16.0)
[2019-07-12] MEDS ORDERED: NS 250 ML ONE (15:07)
--- NOTE | 2019-07-12 16:14 | PROVIDER PROGRESS NOTE ---
Progress Note Subjective: intubated and sedated Objective: vitals. Temp 99.0, Pulse 91, respirations 15, blood pressure 110/60, 02 sat 99% on 30% mechanical ventilation. General: pt lying in bed sedated aend ventilated HEENT: normocephalic, atraumatic, dry mucous membranes. Trachea midline. Intubation tube noted. Skin: Warm and dry, multiple bruises, nephrostomy tube in place Neck: supple, JVD with hepatojugular reflux Cardio: S1S2, no murmur or gallop Respiratory: clear and diminished bilaterally Abdomen: soft, nontender, nondistended, bowel sounds present, colostomy noted to the left. : non inspected, atkins in place Extremities: left arm generalized edema, Trace to BLE Neurological: sedated and intubated Labs: intake 4320, output 5540, WBC 8.74, hemoglobin 8.8, hematocrit 26.1, platelet count 153, sodium 144, potassium 2.6, chloride 107, carbon dioxide 20, BUN 43, creatinine 6.0, calcium 7.0. Impression: Acute kidney injury related to severe bilateral obstruction and acidosis. Creatinine improving. 5 liters of urine noted the last 24 hrs. Nephrostomy placed yesterday. Continue to monitor. Hypocalcemia. IV replacement given. Hypokalemia. IV replacement given. Blood pressure. Vasopressors noted. Metabolic acidosis. Improving with bicarbonate IV. Nutrition. Dietary consult noted from yesterday. Medication review. No changes.
--- NOTE | 2019-07-12 16:24 | Diag Imaging Result Doc PS360 ---
CHEST-PORTABLE - 07/12/2019 4:15 PM INDICATION: NG placement COMPARISON: 4:49 AM FINDINGS: There is a nasogastric tube in good position in the stomach. IMPRESSION: Nasogastric tube in good position in the stomach. Electronically signed by Avery Murphy 07/12/2019 4:22 PM
[2019-07-13] MEDS: POTASSIUM CHLORIDE 20 MEQ/SWI 20 MEQ/100 ML IVPB IV SCH (02:09)
[2019-07-13] MEDS: DUONEB (A & A) INH SCH ×4 (03:34→21:18)
[2019-07-13] MEDS ORDERED: CALMOSEPTINE OINTMENT TOP PRN (04:08)
[2019-07-13] MEDS: SODIUM BICARBONATE 8.4% 150 MEQ in D5W 1,000 ML IV SCH (04:54)
[2019-07-13 05:01] LABS: BLOOD TYPE ARTERIAL; SAMPLE BLOOD
[2019-07-13 05:04] LABS: ALLEN TEST YES; HCO3-(ACT) 29.6 mmoll (20.0-26.0); METHB 0.3 % (0.0-1.5); MODALITY VENTILATOR; O2(CT) 12.9 mL/dL (15.0-23.0); O2HB 97.6 % (95.0-99.0); PCO2(98.6) 38 mmHg (35-45); PO2(98.6) 120 mmHg (60-100); SRATE 14 BPM; THB 9.2 g/dL (11.5-17.4); TVOL 500 mL
[2019-07-13] MEDS: SODIUM CHLORIDE 0.9% INJ SCH (05:17)
[2019-07-13] MEDS: PROTONIX IV SCH ×2 (05:17→18:27)
[2019-07-13 05:21] LABS: BASO# 0.01 X1000 (0.0-0.2); BASO% 0.1 % (0.0-0.8); EOS% 3.2 % (0.0-10.0); HEMATOCRIT 27.8 % (42.0-52.0); HEMOGLOBIN 9.2 g/dL (14.0-18.0); IMM GRAN# 0.03 X1000 (0.0-0.04); IMM GRAN% 0.3 % (0.0-0.5); LYMPH# 1.14 X1000 (1.2-3.4); LYMPH% 12.1 % (20.5-51.1); MCH 28.3 PG (27-31); MCHC 33.1 g/dL (33-37); MCV 85.5 FL (81-99); MONO# 0.86 X1000 (0.11-0.59); MONO% 9.1 % (1.7-9.3); MPV 9.4 FL (7.4-10.4); NEUT# 7.06 X1000 (1.4-6.5); NEUT% 75.2 % (42.2-75.2); PLT 165 X1000 (130-400); RBC 3.25 XMIL (4.7-6.1); RDW 13.3 % (11.5-14.5)
[2019-07-13 06:26] LABS: CALCIUM 7.7 mg/dL (8.8-10.2); CREATININE 4.7 mg/dL (0.7-1.2)
[2019-07-13 06:27] LABS: POTASSIUM 2.4 mmol/L (3.5-5.1)
--- NOTE | 2019-07-13 07:21 | Diag Imaging Result Doc PS360 ---
EXAM: CHEST-1 VIEW HISTORY: SOB TECHNIQUE: Single view COMPARISON: 07/12/2019 FINDINGS: No change in the endotracheal tube, the left subclavian line, or the nasogastric tube. A right-sided PICC line has been placed. The tip lies near the junction of the right atrium and superior vena cava. No cardiomegaly. Mild increased interstitial markings similar to the prior exam. No pleural effusions identified. IMPRESSION: Stable chest Electronically signed by Vick Babcock 07/13/2019 7:18 AM
[2019-07-13] MEDS: 1/2 NS 1,000 ML IV SCH (08:10)
[2019-07-13] MEDS: POTASSIUM CHLORIDE 40 MEQ in NS 250 ML IV SCH ×2 (08:10→11:32)
--- NOTE | 2019-07-13 08:28 | Diag Imaging Result Doc PS360 ---
EXAM: NEPHROSTOGRAM NEW ACCESS INDICATION: has right hydronephrosis, failed cystoscopy/stent TECHNIQUE: COMPARISON: None. FINDINGS: Consent was obtained by proxy from the patient's as the patient was sedated and on a ventilator. The patient was placed in a prone position General anesthesia was provided by the anesthesiology department. Local anesthesia was achieved with 1% lidocaine solution. Using ultrasound guidance, the dilated right renal collecting system was accessed with an introducer needle. Approximately 10 mL of Omnipaque contrast was injected through the introducer needle opacifying the right renal collecting system. Progressive tissue dilation was performed over wire. Then a 10-Citizen Of [place] pigtail drainage catheter was placed over wire in the right renal collecting system with fluoroscopy guide. After confirming good urine flow, the pigtail catheter was secured with silk suture and a locking catheter dressing. There were no known complications. IMPRESSION: Technically successful percutaneous right nephrostomy. Electronically signed by Yoni Lazaro 07/11/2019 1:07 PM
[2019-07-13] MEDS ORDERED: MAGNESIUM SULFATE 1 GM/D5W 1 GM/100 ML IVPB IV ONE (09:06)
[2019-07-13] MEDS ORDERED: HALDOL IV PRN (09:47)
[2019-07-13] MEDS: ZYVOX 600 MG/D5W 600 MG/300 ML IVPB IV SCH ×2 (10:07→22:14)
[2019-07-13 11:46] LABS: ALLEN TEST YES; BE 6.8 mmoll (-3.0-3.0); BLOOD TYPE ARTERIAL; HCO3-(ACT) 30.2 mmoll (20.0-26.0); O2(CT) 15.1 mL/dL (15.0-23.0); O2HB 96.7 % (95.0-99.0); PCO2(98.6) 38 mmHg (35-45); PO2(98.6) 116 mmHg (60-100); SAMPLE BLOOD; SAO2 99.1 % (95.0-100.0); pH(98.6) 7.51 (7.35-7.45)
[2019-07-13 11:49] LABS: MODALITY VENTILATOR
[2019-07-13] MEDS ORDERED: ROMAZICON IV ONE (12:23)
--- NOTE | 2019-07-13 14:18 | PROGRESS NOTE ---
DATE: 07/13/2019 SUBJECTIVE: The patient has no major complaints. He does follow some commands. OBJECTIVE: Vital Signs: Blood pressure is 114/75, heart rate 95, respiratory rate 16, I think he has been afebrile at 98.4 degrees. Cardiovascular: Regular rate and rhythm. Pulmonary: No wheezes or rales. GI: Soft, nontender, nondistended. Bowel sounds are positive. LABORATORY DATA: White count 9, hemoglobin and hematocrit 9 and 27, platelets 165,000. PH 7.5, pCO2 of 38, PO2 of 120. Sodium is 148, potassium 2.4, creatinine is down to 4.7, with a calcium of 7.7. PROBLEM LIST: 1. Acute respiratory failure related to pneumonia. He seems to be doing better. He is on a weaning trial right now. Hopefully, we can get him extubated here soon. 2. Methicillin-resistant staphylococcus aureus pneumonia, right-sided. He is on Zyvox alone. Dr. Guerrero is following. Continue to monitor. 3. Acute on chronic renal failure. Creatinine is finally coming down. Urine output is good. We are going to continue to monitor. Dr. Eller is also following. 4. Obstructive uropathy. He has a Hewitt and a nephrostomy in place. Appears to be stable. 5. Disposition. I think is improving, so I think we are getting close to being able to extubate him. He is off pressors. Will continue to follow closely. cc: Lance Rodriguez MD
--- NOTE | 2019-07-13 19:52 | NEPHROLOGY PROGRESS NOTE ---
DATE: 07/13/2019 SUBJECTIVE: Remains sedated on the ventilator. OBJECTIVE: Vital Signs: Blood pressure 123/78, heart rate 97, respirations 20, afebrile. Intake 4 L; output 5.3 L. General: Unresponsive. Skin: Warm and dry. Neck: Neck veins are not distended. Heart: Tachycardic, but regular. S4 present. Lungs: Have equal breath sounds. No crackles. Abdomen: Firm. Decreased bowel sounds. Nontender. Extremities: 2+ edema. No clubbing or cyanosis. IMPRESSION: 1. Acute kidney injury, secondary to obstruction. Creatinine has improved to 4.7 today. 2. Electrolytes. Moderate hypernatremia with severe hypokalemia. I have ordered replacement for his potassium, and I have changed his intravenous fluids to half normal saline at 50 mL/h. 3. Acid-base. Serum bicarbonate 27, with anion gap 15. I stopped his bicarbonate drip. cc: Rodriguez Eller MD
--- NOTE | 2019-07-13 21:22 | INFECTIOUS DISEASE PROGRESS NO ---
DATE: 07/13/2019 PRESENT ILLNESS: The patient has methicillin-resistant Staph aureus pneumonia involving both lungs. MEDICATIONS: The patient is on his 4th day of treatment with Zyvox. PHYSICAL EXAMINATION: Vital Signs: Temperature is 98 degrees, pulse 95, respirations 16, blood pressure 114/75. General: This is an ill-appearing, middle-aged male. He is in no acute distress. Head, eyes, ears, nose, and throat: Patient has a nasogastric tube in place, an orotracheal tube in place. There is no drainage coming from the nose or ears. Neck: No stiffness. Lungs: Bilateral rhonchi. Cardiovascular: Heart rate is regular. Abdomen: Soft. It did not appear to be tender. There is an ostomy present and it is functioning well. Neurologic: The patient is obtunded. He did not respond to verbal stimuli. He does not have any tremor. LAB AND X-RAY: The patient's CBC shows a white count of 9400, hemoglobin 9.2 platelet count 165,000. Blood gases show a pH of 7.5, PO2 of 120, pCO2 of 38. Creatinine is 4.7, GFR is 13. Stool for Clostridium difficile antigen is negative. Chest x-ray shows increased interstitial markings. ASSESSMENT AND PLAN: The patient has methicillin-resistant Staphylococcus aureus pneumonia. My plan is to continue Zyvox. I would think the patient could easily need 2 weeks of treatment for the pneumonia. COMORBIDITIES: The patient has had Leon sarcoma of the coccyx for which he received radiation therapy. He has had multiple intra-abdominal surgeries. He has had a craniotomy with a MAKE UP EDITOR shunt. He also has a right-sided cochlear implant. The patient has loss of hearing. The patient has end- stage renal disease, seizures, and depression. cc: Uriel Guerrero MD
[2019-07-14] MEDS: DUONEB (A & A) INH SCH ×3 (03:16→23:08)
[2019-07-14 04:23] LABS: BASO# 0.02 X1000 (0.0-0.2); BASO% 0.2 % (0.0-0.8); EOS# 0.48 X1000 (0.0-0.7); HEMOGLOBIN 9.3 g/dL (14.0-18.0); LYMPH# 1.54 X1000 (1.2-3.4); MCH 28.6 PG (27-31); MCHC 32.1 g/dL (33-37); MCV 89.2 FL (81-99); MONO% 10.4 % (1.7-9.3); MPV 9.2 FL (7.4-10.4); NEUT% 68.4 % (42.2-75.2); PLT 167 X1000 (130-400); RBC 3.25 XMIL (4.7-6.1); RDW 13.7 % (11.5-14.5); WBC 9.64 X1000 (4.8-10.8)
[2019-07-14 04:42] LABS: ALLEN TEST YES; BE 8.5 mmoll (-3.0-3.0); BLOOD TYPE ARTERIAL; HCO3-(ACT) 31.6 mmoll (20.0-26.0); METHB 0.1 % (0.0-1.5); O2(CT) 13.8 mL/dL (15.0-23.0); O2HB 98.3 % (95.0-99.0); PCO2(98.6) 37 mmHg (35-45); PO2(98.6) 177 mmHg (60-100); SAMPLE BLOOD; SAO2 100.9 % (95.0-100.0); THB 9.7 g/dL (11.5-17.4); pH(98.6) 7.54 (7.35-7.45)
[2019-07-14 04:45] LABS: MODALITY COOL AEROSOL
[2019-07-14 05:04] LABS: AGAP 15; BUN 37 mg/dL (8-22); CALCIUM 7.9 mg/dL (8.8-10.2); CHLORIDE 108 mmol/L (98-107); COSMO 308; GLUCOSE 114 mg/dL (70-104); POTASSIUM 3.1 mmol/L (3.5-5.1); SODIUM 150 mmol/L (136-145); TCO2 27 mmol/L (25-35)
[2019-07-14 05:07] LABS: CREATININE 3.8 mg/dL (0.7-1.2)
--- NOTE | 2019-07-14 05:27 | PROGRESS NOTE ---
DATE: 07/13/2019 Mr. Charles Jackson has a right nephrostomy tube, and his creatinine is improving. Hopefully, his lack of ostomy output was related to ileus from an obstructed right ureter and hydronephrosis. As that improves, hopefully, his ostomy output continues to improve. His potassium was low this morning, and it has been repleted. His BUN and creatinine are improving. It is 40 and 4.7 today. Glucose is satisfactory. He has had some output from his end colostomy. There is some liquid brown stool in the bag this evening. His abdomen does not appear to be tender. He has been extubated. He still has an NG tube in place. He is getting some tube feeding. cc: Blossom Clayton MD
[2019-07-14 05:33] LABS: ALB/GLOB RATIO 0.7; ALBUMIN 2.5 g/dL (3.5-5.0); DIRECT BILIRUBIN 0.1 mg/dL (0.00-0.20); TOTAL BILIRUBIN 0.25 mg/dL (0.20-1.00); TOTAL PROTEIN 5.9 g/dL (6.3-8.3)
[2019-07-14] MEDS: PROTONIX IV SCH ×2 (05:35→16:22)
[2019-07-14] MEDS: 1/2 NS 1,000 ML IV SCH (05:35)
--- NOTE | 2019-07-14 07:06 | Diag Imaging Result Doc PS360 ---
EXAM: CHEST-1 VIEW 07/14/2019 HISTORY: SOB TECHNIQUE: AP portable upright at 0454 COMMENT: There is some ill-defined opacity in the left lower lobe and also in the right middle lobe. The latter may be slightly improved since 07/13/2019. IMPRESSION: Atelectasis versus pneumonia. Electronically signed by Christiano Wise 07/14/2019 7:04 AM
--- NOTE | 2019-07-14 07:15 | Diag Imaging Result Doc PS360 ---
EXAM: CHEST-PORTABLE 07/14/2019 HISTORY: Feeding Tube placement TECHNIQUE: AP portable at 0704 COMMENT: There is an NG tube with its tip coiled in the fundus of the stomach. There continues to be atelectasis or pneumonia in the lung bases. IMPRESSION: NG tube in the stomach. Electronically signed by Christiano Wise 07/14/2019 7:13 AM
[2019-07-14] MEDS ORDERED: POTASSIUM CHLORIDE 40 MEQ/SWI 40 MEQ/100 ML IVPB IV ONE ×2 (09:54→17:24)
--- NOTE | 2019-07-14 10:25 | PROVIDER PROGRESS NOTE ---
Progress Note Subjective: pt lying in bed. Aroused to verbal stimuli. Denies uremic complaints. Objective: vitals. Temp 98.3, pulse 104, respirations 18, blood pressure 164/106, O2 sat 99% on venti mask. General: pt lying in bed HEENT: normocephalic, atraumatic, dry mucous membranes. Trachea midline. NG tube in place. Skin: Warm and dry, multiple bruises, nephrostomy tube in place Neck: supple, No JVD Cardio: S1S2, S4, no murmur. Regular rate and rhythm. Respiratory: clear and diminished bilaterally Abdomen: soft, nontender, nondistended, bowel sounds present, colostomy noted to the left. : non inspected, atkins in place Extremities: Trace edema to BLE and BUE Neurological: drowsy, oriented to person and place. Labs: WBC 9.64, hemoglobin 9.3, hematocrit 29, platelet count 167, sodium 150, potassium 3.1, chloride 108, carbon dioxide 27, BUN 37, creatinine 3.8, calcium 7.9. Intake 3098, output 4000. Impression: Acute kidney injury related to severe bilateral obstruction and acidosis. Creatinine improving. Continue to monitor. Hypernatremia. Stop IV Fluids. Increase free water in ng tube flushes to 1800ml per 24 hours. Hypokalemia. No intervention at this time. Blood pressure. Elevated. Nutrition. NG feedings. Medication review.
[2019-07-14] MEDS: ZYVOX 600 MG/D5W 600 MG/300 ML IVPB IV SCH ×2 (10:33→21:31)
--- NOTE | 2019-07-14 13:48 | INFECTIOUS DISEASE PROGRESS NO ---
DATE: 07/14/2019 HISTORY OF PRESENT ILLNESS: The patient has methicillin-resistant Staph aureus pneumonia. MEDICATIONS: This is the 5th day of treatment with Zyvox. PHYSICAL EXAMINATION: Vital Signs: Temperature is 98.8, pulse 104, respirations 18, blood pressure 164/106. General: This is an ill-appearing, middle-aged male. He is in no acute distress, however. Head/eyes/ears/nose/throat: He has an NG tube in place. There is no drainage from the nose or ears. There are no white patches in his mouth. The patient is able to hear my voice. On the right parietal area of the skull, the patient has a cochlear implant appliance. Neck: No pain with movement. Lungs: Clear to auscultation. Cardiovascular: Heart rate is regular. Abdomen: Soft and nontender. The patient has a colostomy in place. It is functioning well. Back: The patient has a right nephrostomy tube in place. There is no surrounding erythema or purulence. Neurologic: The patient is more awake today. He actually talked and did follow requests to move his extremities. Integument: No rash. LAB AND X-RAY: Chest X ray was not read by the radiologist yet. I thought I saw an infiltrate in the right lower lobe, but nowhere else. The patient's alkaline phosphatase is 147. The patient's CBC shows a white count of 9640, hemoglobin of 9.3, platelet count of 167,000. Blood gases show a pH of 7.54, pO2 of 177, and a pCO2 of 37. Creatinine is 3.8. ASSESSMENT AND PLAN: Patient has methicillin-resistant Staph aureus pneumonia. I plan to continue Zyvox. COMORBIDITIES: Patient had a Leon sarcoma of the coccyx. He has had multiple intra-abdominal surgeries. He has had a craniotomy. He has had a craniotomy with a HYDROPRESS OPERATOR shunt. He has a right- sided cochlear implant. The patient has end-stage renal disease, seizures, and depression. cc: Uriel Guerrero MD
--- NOTE | 2019-07-14 14:28 | PROGRESS NOTE ---
DATE: 07/14/2019 SUBJECTIVE: Mr. Charles Jackson is a 49-year-old white male who is in our ICU. He has been extubated. He is receiving tube feedings at least at 30 mL an hour. Initially, I saw him for possible small-bowel obstruction. He has had a complicated abdominal history. He has an end- colostomy, left side. He was admitted with acute renal failure and right hydronephrosis, and that has been treated with a nephrostomy tube with improvement of his creatinine. He is having output from his ostomy at this time. His abdomen is soft without tenderness. He could have had an ileus secondary to his right hydronephrosis. However, it appears that his bowel function is returning towards normal. His BUN and creatinine are 37 and 3.8. White blood cell count is normal. Hematocrit is 29%. Heart rate is 91, blood pressure 144/94, O2 saturation 99%, and he is afebrile. PLAN: I agree with increasing his nutrition, whether that be tube feeding or by mouth, as it appears that his bowel function has returned. cc: Blossom Clayton MD
[2019-07-14] MEDS ORDERED: TYLENOL PO PRN (15:45)
[2019-07-14] MEDS: D5 1/2 NS 1,000 ML IV SCH (16:20)
[2019-07-14] MEDS: SODIUM CHLORIDE 0.9% INJ SCH (16:22)
--- NOTE | 2019-07-14 20:28 | PROGRESS NOTE ---
DATE: 07/14/2019 SUBJECTIVE: Patient has no major complaints. He is pretty tired. OBJECTIVE: Vital signs: Blood pressure is 144/94, heart rate of 91, temperature 97.2 degrees, oxygen saturation 96 percent on room air. Cardiovascular: Regular rate and rhythm. Pulmonary: Bilateral breath sounds, clear to auscultation, diminished at bases. GI: Soft, nontender. LABORATORY DATA: White 9, hemoglobin and hematocrit 9 and 20, platelets 167,000. PH 7.54, pCO2 37, PaO2 is 177. Sodium 150, potassium 3.1, BUN and creatinine of 37 and 3.8. IMPRESSIONS: 1. Acute respiratory failure related to pneumonia. He has been extubated. Seems to be doing okay from that standpoint, although he is still very tired. 2. Methicillin resistant Staphylococcus aureus pneumonia, right-sided. He is on Zyvox and stable. 3. Encephalopathy, likely related hopefully to just hypernatremia. We will try to correct that and follow. 4. Obstructive uropathy. He has a Hewitt and nephrostomy, and seems to be doing better. DISPOSITION: We will start working on recovery phase for him at this point, once his mental status improves, getting PT. Anticipate he may need some physical therapy outpatient. cc: Lance Rodriguez MD
[2019-07-14 23:58] LABS: ALB/GLOB RATIO 0.8; ALBUMIN 2.7 g/dL (3.5-5.0); CALCIUM 8.4 mg/dL (8.8-10.2); CREATININE 2.6 mg/dL (0.7-1.2); POTASSIUM 3.7 mmol/L (3.5-5.1); TOTAL BILIRUBIN 0.18 mg/dL (0.20-1.00); TOTAL PROTEIN 6.1 g/dL (6.3-8.3)
[2019-07-15 04:22] LABS: ALLEN TEST YES; BE 9.2 mmoll (-3.0-3.0); BLOOD TYPE ARTERIAL; HCO3-(ACT) 32.1 mmoll (20.0-26.0); O2(CT) 12.1 mL/dL (15.0-23.0); O2HB 94.9 % (95.0-99.0); PCO2(98.6) 30 mmHg (35-45); PO2(98.6) 64 mmHg (60-100); SAMPLE BLOOD; SAO2 96.1 % (95.0-100.0)
[2019-07-15 04:24] LABS: MODALITY ROOM AIR; pH(98.6) 7.62 (7.35-7.45)
[2019-07-15] MEDS: D5 1/2 NS 1,000 ML IV SCH ×2 (04:27→13:56)
[2019-07-15] MEDS: PROTONIX IV SCH (04:27)
[2019-07-15] MEDS: DUONEB (A & A) INH SCH ×2 (04:56→09:50)
[2019-07-15] MEDS: LOVENOX SUBQ SCH (05:04)
[2019-07-15 05:35] LABS: BASO# 0.01 X1000 (0.0-0.2); BASO% 0.1 % (0.0-0.8); EOS# 0.35 X1000 (0.0-0.7); HEMOGLOBIN 9.2 g/dL (14.0-18.0); LYMPH# 1.43 X1000 (1.2-3.4); LYMPH% 20.4 % (20.5-51.1); MCH 28.4 PG (27-31); MCHC 30.7 g/dL (33-37); MCV 92.6 FL (81-99); MONO# 0.61 X1000 (0.11-0.59); MONO% 8.7 % (1.7-9.3); MPV 9.6 FL (7.4-10.4); NEUT# 4.62 X1000 (1.4-6.5); NEUT% 65.8 % (42.2-75.2); PLT 170 X1000 (130-400); RBC 3.24 XMIL (4.7-6.1); RDW 13.4 % (11.5-14.5); WBC 7.02 X1000 (4.8-10.8)
[2019-07-15 06:01] LABS: CALCIUM 8.5 mg/dL (8.8-10.2); CREATININE 2.6 mg/dL (0.7-1.2); POTASSIUM 3.3 mmol/L (3.5-5.1)
[2019-07-15] MEDS ORDERED: POTASSIUM CHLORIDE 40 MEQ/SWI 40 MEQ/100 ML IVPB IV ONE (06:19)
--- NOTE | 2019-07-15 06:58 | Diag Imaging Result Doc PS360 ---
EXAM: CHEST-1 VIEW HISTORY: SOB TECHNIQUE: Chest single view COMPARISON: 07/14/2019 FINDINGS: The lungs are well expanded. No cardiomegaly. No pleural effusions identified. Interstitial markings are slightly less prominent than on the prior study. No change in the right-sided PICC line, the nasogastric tube, or the left subclavian portacatheter. No pneumothoraces. IMPRESSION: Slight interval improvement. Electronically signed by Vick Babcock 07/15/2019 6:56 AM
[2019-07-15] MEDS ORDERED: NS 2,000 ML MISC PRN (08:03)
[2019-07-15] MEDS ORDERED: KLOR-CON PO ONE (09:43)
[2019-07-15] MEDS ORDERED: ZOFRAN IV PRN (10:19)
[2019-07-15] MEDS ORDERED: LABETALOL IV PRN (10:20)
[2019-07-15] MEDS: ZYVOX 600 MG/D5W 600 MG/300 ML IVPB IV SCH ×2 (10:29→21:36)
[2019-07-15] MEDS ORDERED: PHENERGAN IV PRN (11:30)
[2019-07-15] MEDS ORDERED: SODIUM CHLORIDE 0.9% INJ PRN (11:30)
[2019-07-15] MEDS ORDERED: PERCOCET-5 PO PRN (11:58)
[2019-07-15] MEDS ORDERED: NS 1,000 ML IV SCH (12:00)
[2019-07-15] MEDS: DITROPAN PO SCH ×2 (12:41→21:37)
[2019-07-15] MEDS: TEGRETOL PO SCH ×2 (12:41→21:36)
--- NOTE | 2019-07-15 14:08 | INFECTIOUS DISEASE PROGRESS NO ---
DATE: 07/15/2019 PRESENT ILLNESS: The patient is being treated for methicillin-resistant Staph aureus pneumonia. MEDICATIONS: The patient is on the 6th day of treatment with Zyvox. PHYSICAL EXAMINATION: Vital Signs: Temperature is 98.9 degrees, pulse 87, respirations 20, blood pressure 141/98. General: This is an ill-appearing middle-aged male. He is in no acute distress. Head/eyes/ears/nose/throat: The patient has a nasogastric tube in at present. In the right parietal area, there is a cochlear implant appliance. Neck: No pain with movement. Lungs: Clear to auscultation. Cardiovascular: Heart rate is regular. Abdomen: Soft and nontender. A colostomy is in place. Neurologic: The patient is arousable. He can talk but it is difficult for me to understand what he is saying. He can move his extremities. Thorax: The patient has a Port-A-Cath present. The site is not swollen or red. Extremities: Patient has a PICC in his right arm. That site is not swollen or red either. Back: The patient has a right-sided nephrostomy tube in place. LAB AND X-RAY: There is no new radiographic study for today. The patient's CBC shows a white count of 7020, hemoglobin 9.2, and platelet count 170,000. Creatinine is 2.6. GFR is 26. Blood gases show a pH of 7.62, a PO2 of 64, and a pCO2 of 30. ASSESSMENT AND PLAN: The patient has methicillin-resistant Staph aureus pneumonia. I am going to continue with Zyvox. 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 The patient has had multiple intra-abdominal surgeries. He has had a craniotomy and LIFE INSURANCE SPECIALIST shunt. He has a right- sided cochlear implant. He has end-stage renal disease, seizures, and depression. cc: Uriel Guerrero MD
--- NOTE | 2019-07-15 14:52 | PROGRESS NOTE ---
DATE: 07/15/2019 SUBJECTIVE: Patient has no major complaints. OBJECTIVE: Blood pressure is 156/109, heart rate of 88, respiratory 17, temp is 98.2 degrees.Cardiovascular: Regular rate and rhythm. Pulmonary: Bilateral breath sounds clear to auscultation. GI: Soft, nontender, nondistended. Bowel sounds are positive. He still has some rhonchi. LABORATORY DATA: White count 7, hemoglobin and hematocrit 9 and 30, platelets 170,000, pH 7.62, pCO2 30, PaO2 64. Sodium is down to 145, potassium is 3.3, creatinine is 2.6. PROBLEM LIST: 1. Acute respiratory failure due to Methicillin-resistant Staphylococcus aureus pneumonia. He is doing better, weaning off O2. We will continue to monitor. 2. MRSA pneumonia, right lower lobe. We will continue Zyvox. ID is following. 3. Encephalopathy that seems to pretty much have gotten back to normal, probably go ahead and stop the D5. 4. Obstructive uropathy. He is status post Hewitt and nephrostomy. Dr. Perdomo is following. 5. Small bowel obstruction, partial that seems to be relieved. I am going to go and start advancing his diet further. DISPOSITION: 1. I think he is probably stable to go to the step-down. 2. Hypokalemia. He seems to be doing better from that standpoint. Continue to monitor his diet and follow closely. Start working on getting him up and around. cc: Lance Rodriguez MD
--- NOTE | 2019-07-15 19:26 | NEPHROLOGY PROGRESS NOTE ---
DATE: 07/15/2019 SUBJECTIVE: Patient is sitting up in bed. He is asking for something to eat. OBJECTIVE: Vital Signs: Temperature 98.9 degrees, pulse 83, respiratory rate 16, blood pressure 133/97, intake 4.1 L, output 4.5 L. General: This is a middle-aged gentleman sitting up in bed. He is in no acute distress. HEENT: Normocephalic, atraumatic. IRVIN. He has an NG tube with tube feeding infusing to the left naris. Neck: Supple without JVD. Cardiovascular: Regular rate and rhythm. There is no murmur. Pulmonary: He is clear bilaterally. He has equal excursion. Abdomen: Soft with positive bowel sounds. Tube feeding infusing. Genitourinary: Hewitt catheter. Yellow urine noted. Extremities: Trace lower extremity edema. No clubbing or cyanosis. Integumentary: Skin is warm and dry. Neurologic: Grossly nonfocal. LABORATORY DATA: WBC is 7.0, hemoglobin 9.2, sodium 145 (146), potassium 3.3, CO2 29, BUN 32 (35), creatinine 2.6 unchanged. ASSESSMENT AND PLAN: 1. Acute kidney injury secondary to bilateral obstruction acidosis. Renal function continues with stability to improvement. Urine output has been excellent. 2. Hypernatremia. Modest improvement. He continues with tube feeding. From a renal perspective, once the patient is able to tolerate oral intake this can be changed and additional free water given. 3. Electrolytes, acid-base balance. See above for plan. 4. Anemia, stable. 5. Fluid volume. He made greater than 4 L of urine yesterday. 6. Medication review: No changes are needed today. Dictated by RENU No for Rodriguez Eller MD cc: Rodriguez Eller MD
[2019-07-15] MEDS: LYRICA PO SCH (21:37)
--- NOTE | 2019-07-16 00:23 | PULMONOLOGY PROGRESS NOTE ---
DATE: 07/15/2019 SUBJECTIVE: The patient is awake, alert, and conversant. He is without specific complaints. OBJECTIVE: Vital Signs: The patient has been afebrile for the last 24 hours. Blood pressure 155/94, heart rate 82, respiratory rate 17, oxygen saturation 100%. HEENT: Pupils are equal and reactive. Oropharynx appears clear. Neck: Supple. Chest: Reveals good air entry bilaterally with crackles in the lung bases. Cardiac: S1-S2. Abdomen: Soft. Extremities: Without edema. LABORATORIES: Chest x-ray reveals slight improvement in the left base. IMPRESSION: A 49-year-old with: 1. Methicillin-resistant Staphylococcus aureus pneumonia. 2. Acute hypoxemic respiratory failure. 3. Acute on chronic renal failure. PLAN: 1. Complete antibiotic regimen under the direction of Dr. Uriel Guerrero. 2. Wean and discontinue oxygen therapy. 3. Anticipate transfer to the floor today. cc: Serafin Allred MD
[2019-07-16] MEDS: D5 1/2 NS 1,000 ML IV SCH ×3 (03:27→18:44)
[2019-07-16 04:51] LABS: ALLEN TEST YES; BE 6.2 mmoll (-3.0-3.0); BLOOD TYPE ARTERIAL; HCO3-(ACT) 29.7 mmoll (20.0-26.0); O2(CT) 16.1 mL/dL (15.0-23.0); O2HB 96.3 % (95.0-99.0); PCO2(98.6) 37 mmHg (35-45); PO2(98.6) 106 mmHg (60-100); SAMPLE BLOOD; SAO2 98.6 % (95.0-100.0); THB 11.8 g/dL (11.5-17.4); pH(98.6) 7.51 (7.35-7.45)
[2019-07-16 04:52] LABS: MODALITY ROOM AIR
[2019-07-16 05:49] LABS: BASO# 0.01 X1000 (0.0-0.2); BASO% 0.2 % (0.0-0.8); EOS# 0.28 X1000 (0.0-0.7); EOS% 5.1 % (0.0-10.0); HEMATOCRIT 28.4 % (42.0-52.0); HEMOGLOBIN 8.5 g/dL (14.0-18.0); LYMPH# 1.65 X1000 (1.2-3.4); LYMPH% 30.1 % (20.5-51.1); MCH 28.1 PG (27-31); MCHC 29.9 g/dL (33-37); MONO# 0.57 X1000 (0.11-0.59); MONO% 10.4 % (1.7-9.3); MPV 9.4 FL (7.4-10.4); NEUT# 2.97 X1000 (1.4-6.5); NEUT% 54.2 % (42.2-75.2); PLT 149 X1000 (130-400); RBC 3.02 XMIL (4.7-6.1); RDW 12.7 % (11.5-14.5); WBC 5.48 X1000 (4.8-10.8)
[2019-07-16] MEDS: LOVENOX SUBQ SCH (06:01)
[2019-07-16 06:22] LABS: CALCIUM 8.3 mg/dL (8.8-10.2); CREATININE 2.1 mg/dL (0.7-1.2); POTASSIUM 3.3 mmol/L (3.5-5.1)
--- NOTE | 2019-07-16 08:02 | Diag Imaging Result Doc PS360 ---
EXAM: CHEST-1 VIEW INDICATION: SOB TECHNIQUE: One view COMPARISON: 07/15/2019 FINDINGS: Support tubes and lines are in stable positions. The increased interstitial markings seen previously continue to decrease slightly in prominence. No new consolidation is identified. Cardiac silhouette is stable. IMPRESSION: Continued slight improvement. Electronically signed by Yoni Lazaro 07/16/2019 8:00 AM
[2019-07-16] MEDS: ZOLOFT PO SCH (08:23)
[2019-07-16] MEDS: MYRBETRIQ E.R. PO SCH (08:23)
[2019-07-16] MEDS: TEGRETOL PO SCH ×3 (08:23→16:58)
[2019-07-16] MEDS: DITROPAN PO SCH ×3 (08:23→16:58)
[2019-07-16] MEDS: LYRICA PO SCH ×2 (08:23→21:13)
[2019-07-16] MEDS: ZYVOX 600 MG/D5W 600 MG/300 ML IVPB IV SCH ×3 (08:25→21:13)
[2019-07-16] MEDS ORDERED: KLOR-CON PO ONE (09:49)
--- NOTE | 2019-07-16 13:12 | NEPHROLOGY PROGRESS NOTE ---
DATE: 07/16/2019 SUBJECTIVE: The patient has been transferred out of the intensive care unit to a stepdown floor. He has had no issues other than he could not sleep last night. OBJECTIVE: Vital signs: Temperature 98.4, pulse 75, respiratory rate 18, blood pressure 134/89, intake 1.5 L, output 4 L, 3 L of this was via catheter. He did have some drainage noted otherwise. PHYSICAL EXAMINATION: General: This is a middle-aged gentleman sitting up in bed, awake and alert in no acute distress. HEENT: Normocephalic, atraumatic. PERRL. Neck: Supple. No JVD. Cardiovascular: Regular rate and rhythm. No murmur Pulmonary: Clear bilaterally. Abdomen: Soft, positive bowel sounds. He is now eating. His tube feeding has been stopped and NG tube has been removed. : Hewitt catheter, yellow urine noted. Extremities: No edema. Integumentary: Skin warm and dry. Neurologic: Grossly nonfocal. LABORATORY DATA: WBC of 5.4, hemoglobin 8.5. Potassium 3.3, CO2 26, creatinine 2.1 (2.6). ASSESSMENT AND PLAN: 1. Acute kidney injury secondary to bilateral obstruction with acidosis. Renal function continues to improve. Urine output has been excellent. No changes needed to current plan. 2. Electrolytes, acid-base balance, these are stable. His hypernatremia has resolved. He is now taking oral intake. 3. Fluid volume. Again, urine output has been excellent. 4. Disposition. Continue to follow the patient along in the hospital. Have no changes to his current treatment plan. We will make sure he has an outpatient appointment with us after discharge. Dictated by RENU No for Rodriguez Eller MD cc: Rodriguez Eller MD
--- NOTE | 2019-07-16 23:06 | PROGRESS NOTE ---
DATE: 07/16/2019 SUBJECTIVE: Patient has no major complaints. OBJECTIVE: Vital Signs: Blood pressure 150/97, heart rate of 78, respiratory rate of 17, temperature 98.5 degrees. Cardiovascular: Regular rate and rhythm. Pulmonary: Bilateral breath sounds clear to auscultation. Gastrointestinal: Soft, nontender, nondistended. Bowel sounds were positive. LABORATORY DATA: White count 5, hemoglobin and hematocrit 8.5 and 28, platelets 149,000. PH 7.51, pCO2 of 37, PaO2 106. Potassium 3.1, creatinine is down to 2.1. PROBLEM LIST: 1. Acute respiratory failure due to methicillin-resistant Staphylococcus aureus pneumonia. He seems to be doing better. We will continue to monitor. 2. Methicillin-resistant Staphylococcus aureus pneumonia right lower lobe. He is on Zyvox. ID is following. Zyvox was started on the 16th, day 8 or probably at least day 7. Continue to follow. 3. Encephalopathy. 4. Obstructive uropathy. He had a ureteral restriction so he has had a nephrostomy and Hewitt placed. 5. Small bowel obstruction, partial. He is stable. That seems to be stabilizing. DISPOSITION: I think he is probably able to get transitioned off. We will continue to follow closely. cc: Lance Rodriguez MD
--- NOTE | 2019-07-17 02:09 | PULMONOLOGY PROGRESS NOTE ---
DATE: 07/16/2019 SUBJECTIVE: The patient is awake, alert, and conversant. OBJECTIVE: Vital Signs: The patient has been afebrile for the last 24 hours, BP 152/92, heart rate 80, respiratory rate 16, oxygen saturation 99% on room air. HEENT: Pupils are equal and reactive. Oropharynx appears clear. Neck: Supple. Chest: Reveals good air entry bilaterally without wheezing or rhonchi. Cardiac: S1-S2. Abdomen: Soft. Extremities: Without edema. LABORATORIES: White blood count 5.48, hemoglobin 8.5, platelet count 149,000. Arterial blood gas reveals a pH 7.51, pCO2 of 37, pO2 of 106. Chest x-ray reveals continued decrease in interstitial markings. IMPRESSION: A 49-year-old with: 1. Methicillin-resistant Staphylococcus aureus pneumonia with continued clinical improvement. 2. Acute hypoxemic respiratory failure, now on room air. 3. Acute on chronic renal failure with improving kidney function after placement of a nephrostomy tube. PLAN: 1. Complete antibiotic regimen under the direction of Uriel Guerrero. 2. Continue bronchial hygiene. cc: Serafin Allred MD
[2019-07-17] MEDS: LOVENOX SUBQ SCH (05:39)
[2019-07-17 06:08] LABS: BASO# 0.02 X1000 (0.0-0.2); BASO% 0.5 % (0.0-0.8); EOS# 0.24 X1000 (0.0-0.7); EOS% 5.7 % (0.0-10.0); HEMATOCRIT 29.7 % (42.0-52.0); HEMOGLOBIN 8.9 g/dL (14.0-18.0); LYMPH% 40.4 % (20.5-51.1); MCH 28.1 PG (27-31); MCV 93.7 FL (81-99); MONO# 0.41 X1000 (0.11-0.59); MONO% 9.7 % (1.7-9.3); MPV 9.6 FL (7.4-10.4); NEUT# 1.84 X1000 (1.4-6.5); NEUT% 43.7 % (42.2-75.2); PLT 154 X1000 (130-400); RBC 3.17 XMIL (4.7-6.1); RDW 12.1 % (11.5-14.5); WBC 4.21 X1000 (4.8-10.8)
[2019-07-17 06:44] LABS: CALCIUM 8.6 mg/dL (8.8-10.2); CREATININE 1.9 mg/dL (0.7-1.2); POTASSIUM 3.4 mmol/L (3.5-5.1)
[2019-07-17] MEDS ORDERED: KLOR-CON PO ONE (08:22)
[2019-07-17] MEDS: ZOLOFT PO SCH (08:50)
[2019-07-17] MEDS: LYRICA PO SCH ×2 (08:50→20:48)
[2019-07-17] MEDS: MYRBETRIQ E.R. PO SCH (08:50)
[2019-07-17] MEDS: ZYVOX 600 MG/D5W 600 MG/300 ML IVPB IV SCH ×2 (08:50→09:13)
[2019-07-17] MEDS: TEGRETOL PO SCH ×3 (08:50→16:59)
[2019-07-17] MEDS: DITROPAN PO SCH ×3 (08:50→16:59)
[2019-07-17] MEDS: D5 1/2 NS 1,000 ML IV SCH ×2 (15:08→22:36)
--- NOTE | 2019-07-17 15:35 | NEPHROLOGY PROGRESS NOTE ---
DATE: 07/17/2019 SUBJECTIVE: Patient resting in bed, sleeping. OBJECTIVE: Vital signs: Temperature 97.8, pulse 73, respiratory rate 16, blood pressure 144/98. Intake 1.4 L. Output 2 L; one liter of this was urine output. General: A middle-aged gentleman, resting in bed. He is in no acute distress. He awakens easily. HEENT: Normocephalic, atraumatic. IRVIN. Oral mucosa dry. Neck: Supple without JVD. Cardiovascular: Regular rate and rhythm without murmur or gallop. Pulmonary: He is on room air. He has equal excursion. Clear bilaterally. Abdomen: Soft with positive bowel sounds. : Continues with a Hewitt catheter. Yellow urine. Extremities: No clubbing, cyanosis, or edema. Is moving extremities. Integument: Skin warm and dry. LAB DATA: Hemoglobin 8.9, potassium 3.4, CO2 of 26. Creatinine 1.9. ASSESSMENT AND PLAN: 1. Acute kidney injury secondary to bilateral obstruction with acidosis. His renal function continues to improve. He has no acidosis today. Urine output excellent. Continue current treatment plan. 2. Electrolytes, acid-base balance, anemia, and fluid volume. These are all stable. Continue to monitor. 3. Disposition. We will make sure he has a follow up within 2-3 weeks after discharge to ensure renal stability. Dictated by RENU No for Rodriguez Eller MD cc: Rodriguez Eller MD
--- NOTE | 2019-07-17 16:45 | PROGRESS NOTE ---
DATE: 07/17/2019 SUBJECTIVE: Patient has no major complaints. He is doing much better. We did discuss about his nephrostomy that it will most likely have to stay in. OBJECTIVE: Blood pressure 128/86, heart rate is 78, respiratory 16, temperature 98 degrees, 98% on room air.Cardiovascular: Regular rate and rhythm. Pulmonary: Bilateral breath sounds clear to auscultation. GI: Soft, nontender, nondistended. Bowel sounds are positive. LABORATORY DATA: White count is 4, hemoglobin and hematocrit 8 and 29, platelets of 154,000. Potassium 3.4, creatinine is 1.9. PROBLEM LIST: 1. Acute respiratory failure that seems to be resolving. 2. Methicillin-resistant Staphylococcus aureus pneumonia. He is on Zyvox. I think we can switch it to p.o. and then I guess at some point consider tapering him off. I think at this point, we could switch him to p.o. Zyvox. He has been on IV Zyvox since the , that has been about 8 days but I guess will say day 7. 3. Acute kidney injury due to ureteral obstruction that seems to be getting better. He gets daily intravenous fluids at home apparently gets a bag of lactated Ringer's, so we will continue his IV fluids for the time being. DISPOSITION: I think he is probably safe to go home and resume his home health and he is motivated to go home tomorrow so we will work on that. cc: Lance Rodriguez MD
[2019-07-17] MEDS: ZYVOX PO SCH (20:48)
--- NOTE | 2019-07-18 01:59 | PULMONOLOGY PROGRESS NOTE ---
DATE: 07/17/2019 SUBJECTIVE: The patient is awake, alert, and conversant. He denies sputum production. He reports his breathing is doing well. OBJECTIVE: Vital Signs: The patient has been afebrile for the last 24 hours. Blood pressure 128/80, heart rate 76, respiratory rate 16, oxygen saturation 98%. HEENT: Pupils are equal and reactive. Oropharynx appears clear. Neck: Supple. Chest: Reveals crackles at the left base. Cardiac: S1-S2. Abdomen: Soft. Extremities: Without edema. LABORATORIES: White blood count 4.21, hemoglobin 8.9, platelet count 154,000. Sodium 142, potassium 3.4, chloride 104, bicarbonate 26, BUN 19, creatinine 1.9. Microbiology reveals no new data. IMPRESSION: A 49-year-old with: 1. Methicillin-resistant Staphylococcus aureus pneumonia with continued improvement. 2. Hypoxemic respiratory failure which has resolved. 3. Acute on chronic renal failure which continues to improve. PLAN: 1. Complete antibiotic regimen under the direction of Dr. Uriel Guerrero. 2. Continue bronchial hygiene. 3. From a pulmonary standpoint, patient could be discharged tomorrow morning. cc: Serafin Allred MD
[2019-07-18] MEDS: D5 1/2 NS 1,000 ML IV SCH (03:34)
[2019-07-18] MEDS: LOVENOX SUBQ SCH (05:42)
[2019-07-18] MEDS: DUONEB (A & A) INH SCH (06:31)
[2019-07-18 06:33] LABS: CALCIUM 8.5 mg/dL (8.8-10.2); CREATININE 1.8 mg/dL (0.7-1.2); POTASSIUM 3.7 mmol/L (3.5-5.1)
[2019-07-18 06:49] LABS: BASO# 0.02 X1000 (0.0-0.2); BASO% 0.5 % (0.0-0.8); EOS# 0.24 X1000 (0.0-0.7); EOS% 5.7 % (0.0-10.0); HEMATOCRIT 31.3 % (42.0-52.0); HEMOGLOBIN 9.6 g/dL (14.0-18.0); LYMPH% 37.8 % (20.5-51.1); MCH 28.9 PG (27-31); MCHC 30.7 g/dL (33-37); MCV 94.3 FL (81-99); MONO# 0.41 X1000 (0.11-0.59); MONO% 9.7 % (1.7-9.3); MPV 10.5 FL (7.4-10.4); NEUT# 1.96 X1000 (1.4-6.5); NEUT% 46.3 % (42.2-75.2); PLT 157 X1000 (130-400); RBC 3.32 XMIL (4.7-6.1); WBC 4.23 X1000 (4.8-10.8)
[2019-07-18 08:04] VITALS: BP 147/101
[2019-07-18] MEDS: LYRICA PO SCH (08:53)
[2019-07-18] MEDS: ZOLOFT PO SCH (08:53)
[2019-07-18] MEDS: DITROPAN PO SCH ×2 (08:54→12:42)
[2019-07-18] MEDS: ZYVOX PO SCH (08:54)
[2019-07-18] MEDS: MYRBETRIQ E.R. PO SCH (08:54)
[2019-07-18] MEDS: TEGRETOL PO SCH ×2 (08:54→12:42)
--- NOTE | 2019-07-18 14:20 | INFECTIOUS DISEASE PROGRESS NO ---
DATE: 07/18/2019 PRESENT ILLNESS: The patient has a methicillin-resistant Staph aureus pneumonia. MEDICATIONS: This is the 9th day of treatment with Zyvox for that infection. PHYSICAL EXAMINATION: Vital Signs: Temperature is 97.9 degrees, pulse 76, respirations 20, blood pressure 147/101. General: This is an ill-appearing middle-aged male. He is in no acute distress. Head/eyes/ears/nose/throat: No drainage was noted from the nose or ears. I did not see any white patches in his mouth. He was able to hear my spoken words. In the right parietal area, there is a device that is connected to the patient's cochlear implant. Neck: No stiffness. Lungs: Clear to auscultation. Cardiovascular: Heart rate is regular. Abdomen: Soft and nontender. Colostomy is in place. Back: The patient has a right nephrostomy tube in place. Thorax: Patient has a left-sided Port-A-Cath in place. The site is not erythematous or purulent. Extremities: Patient has a PICC in the right arm. That site also is not erythematous or purulent. LAB AND X-RAY: Chest x-ray shows decreased interstitial markings. There is no consolidation or infiltrates. Creatinine is 1.8. GFR is 40. The patient's CBC shows a white count of 4230, hemoglobin 9.6, platelet count 157,000. ASSESSMENT AND PLAN: I have discontinued Zyvox and I placed the patient on doxycycline 100 mg p.o. every 12 hours. I would suggest continuing doxycycline for a total of 5 more days to complete a 2 week treatment course of the patient's methicillin-resistant Staph aureus pneumonia. 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 He has had multiple intraabdominal surgeries. He has had a craniotomy and placement of a ACADEMIC SUCCESS COORDINATOR shunt. He has also a right-sided cochlear implant. The patient has end-stage renal disease, seizures, and depression. I am signing off of the patient's case. I am available to see him on a p.r.n. basis. As mentioned above, I suggest treating with doxycycline 100 mg p.o. every 12 hours for 5 more days. cc: Uriel Guerrero MD
--- NOTE | 2019-07-18 16:34 | PROVIDER PROGRESS NOTE ---
Progress Note Subjective: pt lying in bed. Aroused to tactile stimuli. Denies uremic complaints. Objective: vitals. Temp 97.9, pulse 70, respirations 18, blood pressure 130/92, O2 sat 100% on room air. General: pt lying in bed in no acute distress HEENT: normocephalic, atraumatic, pupils equal and reactive. Trachea midline. Skin: Warm and dry, multiple bruises, nephrostomy tube in place Neck: supple, 8 cm JVD Cardio: S1S2. Regular rate and rhythm. No murmurs or gallops noted. Respiratory: clear and diminished bilaterally Abdomen: soft, nontender, nondistended, bowel sounds present, colostomy noted to the left. : non inspected, atkins in place Extremities: No clubbing, sinuses, or edema. Neurological: drowsy , oriented to person and place and time. Labs: intake 2890, output 2260. Wbc 4.23, hemoglobin 9.6, hematocrit 31.3, platelet count 157, sodium 139, potassium 3.7, chloride 104, carbon dioxide 22, BUN 19, creatinine 1.8. Impression: Acute kidney injury related to severe bilateral obstruction. Creatinine returned to baseline. We will follow up in the office. Hypernatremia. Resolved. Hypokalemia. Resolved. Blood pressure. In target. Volume status. Slightly overloaded. We will stop his IVF. Nutrition. Adequate Medication review.
[2019-07-18] MEDS ORDERED: DOXYCYCLINE PO SCH (18:00)
--- NOTE | 2019-07-19 13:40 | DISCHARGE SUMMARY ---
ADMISSION DATE: 07/09/2019 DISCHARGE DATE: 07/18/2019 DISCHARGE DIAGNOSES: 1. Acute respiratory failure due to MRSA pneumonia. 2. MRSA pneumonia. 3. 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 4. Chronic renal failure, which is usually around stage IIIB. 5. History of sarcoma with resection. In any case, the patient, 49, came in with confusion. He was acidotic. He was intubated. His creatinine had risen. He was transferred to the main hospital for further management. Renal ultrasound showed severe bilateral hydronephrosis and atrophy of the left kidney. He does have both kidneys, abdominal pelvic CT showed worsening hydronephrosis of the right kidney, stable mass, hydronephrosis of the left kidney. Nephrology was consulted. He was placed on a bicarbonate drip. NG was placed for medications. Pulmonary managed his ventilator, which was Dr. Toledo. They attempted, I think, to do cystoscopy, but it was not able to be completed because of technical difficulties. There were discussions about surgery and O'Kean versus Farrell staying through for ileus. I think once they placed a nephrostomy tube, which was on the 18th, that they had fixed the problem. Overall, his kidney function continued to improve. Renal ultrasound showed a nephrostomy, which was on the 18th. He had been on the ventilator, I think subsequently was extubated. Dr. Guerrero was consulted and with MRSA he was maintained on Zyvox. His course continued to slowly improve. His creatinine improved with infusions. He gets daily IV fluids at home. His discharge creatinine was 1.8. White count 4, hemoglobin and hematocrit 9 and 31. Again, positive for Staph aureus, but it is sensitive to Zyvox. DISCHARGE MEDICINES: Carbamazepine 200 t.i.d. Ditropan 5 t.i.d., Lyrica 75 b.i.d., Myrbetriq 50 daily, Percocet p.r.n., Phenergan p.r.n., Klor-Con 10 daily, sertraline 100 daily, sodium bicarb 1300 t.i.d., Zyvox 600 q. 12 h. for 7 days. DISCHARGE CONDITION: Stable. FOLLOW UP: Dr. Perdomo, Dr. Eller. cc: Lance Rodriguez MD
--- NOTE | 2019-08-21 17:03 | OPERATIVE NOTE ---
PROCEDURE DATE: 07/10/2019 SURGEON: Desean Victoria MD. PREOPERATIVE DIAGNOSIS: 1. Atrophic left kidney . 2. Hydronephrosis of the right kidney. 3. History of radiation secondary sarcoma. 4. Acute kidney injury. POSTOP DIAGNOSIS: 1. Atrophic left kidney . 2. Hydronephrosis of the right kidney. 3. History of radiation secondary sarcoma. 4. Acute kidney injury. PROCEDURE: Cystoscopy under anesthesia. INDICATIONS: 49-year-old male with history of sarcoma who has undergone radiation and surgical resection. He has had bladder augmentation. He has atrophic left kidney with thin parenchyma and chronic left hydronephrosis. He presented with acute kidney injury and was found to have new onset of worsening hydroureteronephrosis on the right. The patient is intubated and his was counseled on attempt at cystoscopy with retrograde pyelogram and right ureteral stent placement. This has been done in the past by Dr. Perdomo. The family was educated that given augmented bladder it may be difficult or impossible to find the orifice and place a stent. FINDINGS: Severe contracted bladder with trabeculations. Bladder augment is small in capacity as well. After multiple attempts I could not identify the right ureteral orifice. I thought I could identify the left ureteral orifice but I could never cannulate it with a wire enough to gain access to the left renal pelvis. DESCRIPTION OF PROCEDURE: After obtaining informed consent patient brought to the operating room. Perioperative antibiotics were administered. He was already intubated in ICU. He was placed in lithotomy position, prepped and draped sterile fashion. A 21-Swedish rigid cystoscope was used to gain access to his urethra and the bladder. His urethra showed no evidence of strictures or lesions. The bladder once again was very contracted with trabeculations consistent with previous radiation cystitis. There was an opening toward the dome of the bladder into the augmented portion of the bladder. It was larger than the [place] bladder but not by much. I did not see any mucosal lesions, significant trabeculations or sizable diverticula in augmented portion the bladder. I then attempted to verify ureteral orifices. I examined the entire augmented bladder switching from 30 to 70 degree lens. I attempted to distend the bladder as well as empty it in order to try to find the orifice. I could not identify the right ureteral orifice. At some point it appeared that we found a small opening in the mucosal fold that could be it but cannulation with the wire did not allow us to advance it much further than a centimeter or so and in any case it appeared to be in the left side anyway which is atrophic. Hence after trying several more times we aborted the procedure. His bladder was drained. Cystoscope was removed. He was transferred back to ICU. I discussed with the patient's family that we were unable to place ureteral stent from below and the following day I will discuss the case with radiology colleagues in order to attempt to place nephrostomy tube on the right side. ESTIMATED BLOOD LOSS: None. COMPLICATIONS: None. DRAINS: 16-Swedish coude . RAMIREZ CATHETER: None. SPECIMENS: None. DISPOSITION: To intensive care unit for further recovery. cc: Desean Victoria MD MTDD
== END 2019-07-18 16:58 | disposition home health service (06) | DRG 207 ==
LOC: ED 23:03 → SUATTDRO 07-09 02:51 → EDIPHOLD 07-09 02:51 → ICU 07-09 07:23 → 2N 07-15 13:24
PROVIDERS: ATTEND Internal Medicine